=== PATIENT | male | born 1950 | race Caucasian/White ===

== ENCOUNTER → 2016-06-09 | Outpatient (CLI) | payer MEDICARE ==
[~2016-06-09] MED LIST: ACET-2267 PO; CEPH-507 PO; CEPH500C PO; CYCL10TA9 PO; DIPH25CA79 PO; RANI150T90 PO; RT-ALBUINH IH; SULF-222 PO; benedryl; protonix
--- NOTE | 2016-06-09 14:46 | Diagnostic Imaging Report ---
EXAMINATION: Right lower extremity duplex venous ultrasound. TECHNIQUE: DVT protocol. Multiple sonographic images with color Doppler and waveform interrogation were performed of the right lower extremity veins with compression and augmentation maneuvers. INDICATION: Right leg pain and swelling. FINDINGS: The right lower extremity veins from the groin to below the knee veins were examined with normal color-flow, compressibility and normal waveform demonstrated. The great saphenous vein is patent. IMPRESSION: No evidence of DVT in the right lower extremity. Dictated by: Dictated on workstation # [id number]
== END ==
LOC: RAD 13:18
PROVIDERS: ATTEND Family Medicine
DX: M79.89 Other specified soft tissue disorders (principal)

== ENCOUNTER 2016-06-29 17:55 | Inpatient (IN) | payer MEDICARE ==
[~2016-06-29] VITALS: Ht 172.7 cm; Wt 64.4 kg
[~2016-06-29 17:55] MED LIST changes: -ACET-2267 PO; -CEPH-507 PO; -CEPH500C PO; -DIPH25CA79 PO; -RANI150T90 PO; -RT-ALBUINH IH; -SULF-222 PO
[2016-06-29 18:53] LABS: BASOPHILS % (AUTO) 0 % (0-10); EOSINOPHILS # (AUTO) 0.2 10^3/uL (0.0-0.3); EOSINOPHILS % (AUTO) 2 % (0-10); LYMPHOCYTES # (AUTO) 0.9 X 10^3 (1.0-4.0); LYMPHOCYTES % (AUTO) 8 % (12-44); MEAN CORPUSCULAR HEMOGLOBIN 32 PG (25-34); MEAN CORPUSCULAR HGB CONC 33 G/DL (32-36); MEAN CORPUSCULAR VOLUME 99 FL (80-99); MEAN PLATELET VOLUME 9.3 FL (7.4-10.4); MONOCYTES # (AUTO) 0.9 X 10^3 (0.0-1.0); MONOCYTES % (AUTO) 8 % (0-12); NEUTROPHILS # (AUTO) 9.5 X 10^3 (1.8-7.8); NEUTROPHILS % (AUTO) 83 % (42-75); PLATELET COUNT 373 10^3/uL (130-400); WHITE BLOOD COUNT 11.5 10^3/uL (4.3-11.0)
[2016-06-29 19:13] LABS: ALANINE AMINOTRANSFERASE 24 U/L (0-55); ALBUMIN 4.6 G/DL (3.2-4.5); ANION GAP 12 MMOL/L (5-14); ASPARTATE AMINO TRANSFERASE 22 U/L (5-34); BILIRUBIN,TOTAL 0.4 MG/DL (0.1-1.0); BLOOD UREA NITROGEN 17 MG/DL (7-18); BUN/CREATININE RATIO 16; CALCIUM 9.5 MG/DL (8.5-10.1); CARBON DIOXIDE 22 MMOL/L (21-32); CHLORIDE 103 MMOL/L (98-107); CREATININE SERUM 1.05 MG/DL (0.60-1.30); GFR ESTIMATED > 60; GLUCOSE 108 MG/DL (70-105); POTASSIUM 4.3 MMOL/L (3.6-5.0); SODIUM 137 MMOL/L (135-145); TOTAL PROTEIN 7.7 G/DL (6.4-8.2); hs C REACTIVE PROTEIN 0.43 MG/DL (0.00-0.50)
[2016-06-29 19:30] LABS: ERYTHROCYTE SEDIMENTATION RATE 4 MM/HR (0-30)
[2016-06-29] MEDS ORDERED: VANCOMYCIN INJECTION 1,000 MG in NS (IVPB) 250 ML IV ONE (19:45)
[2016-06-29 20:21] VITALS: BP 154/83
[2016-06-29] MEDS ORDERED: CATHETER FLUSH 10 ML SYR IV PRN (20:45)
[2016-06-29] MEDS ORDERED: CEPH500C PO (21:10)
[2016-06-29] MEDS ORDERED: RT-ALBUINH IH (22:54)
[2016-06-29] MEDS: MUPIROCIN 2% OINT 22 GM (BACTROBAN) TUBE TOP SCH (22:55)
[2016-06-29] MEDS: CATHETER FLUSH 10 ML SYR IV SCH (22:56)
[2016-06-29 23:34] VITALS: BP 136/74
[2016-06-30 03:11] VITALS: BP 129/72
[2016-06-30 04:54] LABS: BASOPHILS % (AUTO) 0 % (0-10); EOSINOPHILS # (AUTO) 0.3 10^3/uL (0.0-0.3); EOSINOPHILS % (AUTO) 4 % (0-10); LYMPHOCYTES # (AUTO) 1.1 X 10^3 (1.0-4.0); LYMPHOCYTES % (AUTO) 15 % (12-44); MEAN CORPUSCULAR HEMOGLOBIN 32 PG (25-34); MEAN CORPUSCULAR HGB CONC 33 G/DL (32-36); MEAN CORPUSCULAR VOLUME 99 FL (80-99); MEAN PLATELET VOLUME 9.2 FL (7.4-10.4); MONOCYTES % (AUTO) 14 % (0-12); NEUTROPHILS % (AUTO) 67 % (42-75); PLATELET COUNT 336 10^3/uL (130-400); RED BLOOD COUNT 4.24 10^6/uL (4.35-5.85); RED CELL DISTRIBUTION WIDTH 13.1 % (10.0-14.5); WHITE BLOOD COUNT 7.4 10^3/uL (4.3-11.0)
[2016-06-30 05:17] LABS: ALANINE AMINOTRANSFERASE 22 U/L (0-55); ALBUMIN 3.9 G/DL (3.2-4.5); ANION GAP 9 MMOL/L (5-14); ASPARTATE AMINO TRANSFERASE 19 U/L (5-34); BILIRUBIN,TOTAL 0.9 MG/DL (0.1-1.0); BLOOD UREA NITROGEN 12 MG/DL (7-18); BUN/CREATININE RATIO 17; CALCIUM 8.7 MG/DL (8.5-10.1); CARBON DIOXIDE 22 MMOL/L (21-32); CHLORIDE 103 MMOL/L (98-107); GFR ESTIMATED > 60; GLUCOSE 100 MG/DL (70-105); POTASSIUM 3.9 MMOL/L (3.6-5.0); SODIUM 134 MMOL/L (135-145); TOTAL PROTEIN 6.6 G/DL (6.4-8.2)
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
[2016-06-30] MEDS: CATHETER FLUSH 10 ML SYR IV SCH ×3 (06:24→20:30)
[2016-06-30] MEDS: VANCOMYCIN 1 GM/NS 250 ML IVPB IV SCH ×4 (07:47→20:31)
[2016-06-30] MEDS: MUPIROCIN 2% OINT 22 GM (BACTROBAN) TUBE TOP SCH ×2 (07:48→20:31)
[2016-06-30 08:00] VITALS: BP 139/73
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
[2016-06-30] MEDS: ENOXAPARIN 40 MG/0.4 ML (LOVENOX) SYR SC SCH (09:56)
[2016-06-30] MEDS ORDERED: RANI150T90 PO (10:39)
[2016-06-30] MEDS ORDERED: ACET-2267 PO (10:40)
[2016-06-30] MEDS ORDERED: DIPH25CA79 PO (10:45)
[2016-06-30 12:00] VITALS: BP_SYST 108; BP_SYST 118; BP_DIAS 71; BP_DIAS 72
[2016-06-30 16:30] VITALS: BP 124/74
[2016-06-30] MEDS ORDERED: ACETAMINOPHEN 500 MG TAB (TYLENOL) PO PRN (17:00)
[2016-06-30] MEDS ORDERED: RT-ALBUTEROL SULF 2.5 MG/3 ML PRE-MIX VIAL IH PRN (17:45)
[2016-06-30] MEDS ORDERED: diphenhydrAMINE 25 MG TAB (BENADRYL) PO PRN (17:45)
[2016-06-30 20:26] VITALS: BP 129/78
[2016-06-30] MEDS ORDERED: FAMOTIDINE 20 MG (PEPCID) TABLET PO PRN (21:00)
[2016-07-01] VITALS: BP 128/81
[2016-07-01 04:00] VITALS: BP 123/70
[2016-07-01] MEDS ORDERED: TROUGH ORDER-PHARMACY XX NR (07:00)
[2016-07-01] MEDS: CATHETER FLUSH 10 ML SYR IV SCH ×3 (07:06→20:50)
[2016-07-01 07:24] LABS: BASOPHILS % (AUTO) 0 % (0-10); EOSINOPHILS # (AUTO) 0.5 10^3/uL (0.0-0.3); EOSINOPHILS % (AUTO) 9 % (0-10); LYMPHOCYTES % (AUTO) 18 % (12-44); MEAN CORPUSCULAR HEMOGLOBIN 32 PG (25-34); MEAN CORPUSCULAR HGB CONC 32 G/DL (32-36); MEAN CORPUSCULAR VOLUME 99 FL (80-99); MONOCYTES # (AUTO) 0.8 X 10^3 (0.0-1.0); MONOCYTES % (AUTO) 14 % (0-12); NEUTROPHILS # (AUTO) 3.4 X 10^3 (1.8-7.8); NEUTROPHILS % (AUTO) 59 % (42-75); PLATELET COUNT 327 10^3/uL (130-400); RED BLOOD COUNT 4.64 10^6/uL (4.35-5.85); RED CELL DISTRIBUTION WIDTH 13.1 % (10.0-14.5); WHITE BLOOD COUNT 5.6 10^3/uL (4.3-11.0)
[2016-07-01 07:50] LABS: ANION GAP 7 MMOL/L (5-14); BLOOD UREA NITROGEN 9 MG/DL (7-18); BUN/CREATININE RATIO 13; CALCIUM 8.9 MG/DL (8.5-10.1); CARBON DIOXIDE 24 MMOL/L (21-32); CHLORIDE 103 MMOL/L (98-107); CREATININE SERUM 0.67 MG/DL (0.60-1.30); GFR ESTIMATED > 60; GLUCOSE 96 MG/DL (70-105); SODIUM 134 MMOL/L (135-145)
--- NOTE | 2016-07-01 07:52 | Progress Note (SOAP) ---
Subjective Subjective/Events-last exam cellulitis of right leg. Failure of outpatient treatment. Redness is better. Patient has still some swelling of the right foot. Patient in the right direction Objective Exam Vital Signs Date Time Temp Pulse Resp B/P (MAP) Pulse Ox O2 Delivery O2 Flow Rate FiO2 07/01/16 04:00 96.7 90 18 123/70 97 Room Air 07/01/16 00:00 96.3 87 18 128/81 96 Room Air 06/30/16 20:26 97.1 83 20 129/78 96 Room Air 06/30/16 16:30 97.7 78 20 124/74 97 Room Air 06/30/16 12:00 99.0 79 20 118/71 98 Room Air 06/30/16 08:00 98.8 88 20 139/73 97 Room Air I & O 07/01/16 07:00 Intake Total 3040 ml Output Total 3350 ml Balance -310 ml Capillary Refill : Less Than 3 Seconds General Appearance: No Apparent Distress HEENT: Normal ENT Inspection Neck: Full Range of Motion, Non Tender Respiratory: Chest Non Tender, Lungs Clear, No Accessory Muscle Use, No Respiratory Distress Cardiovascular: Regular Rate, Rhythm, No Murmur Gastrointestinal: non tender, soft Results Lab Laboratory Tests 07/01/16 07:10 Laboratory Tests 07/01/16 07:10: White Blood Count 5.6, Red Blood Count 4.64, Hemoglobin 14.8, Hematocrit 46, Mean Corpuscular Volume 99, Mean Corpuscular Hemoglobin 32, Mean Corpuscular Hemoglobin Concent 32, Red Cell Distribution Width 13.1, Platelet Count 327, Mean Platelet Volume 9.0, Neutrophils (%) (Auto) 59, Lymphocytes (%) (Auto) 18, Monocytes (%) (Auto) 14H, Eosinophils (%) (Auto) 9, Basophils (%) (Auto) 0, Neutrophils # (Auto) 3.4, Lymphocytes # (Auto) 1.0, Monocytes # (Auto) 0.8, Eosinophils # (Auto) 0.5H, Basophils # (Auto) 0.0 Microbiology 06/29/16 Blood Culture - Preliminary, Resulted No growth 06/29/16 Gram Stain - Final, Resulted 06/29/16 Wound Culture - Preliminary, Resulted No growth Assessment/Plan Assessment/Plan Assess & Plan/Chief Complaint cellulitis of right leg. Family outpatient treatment. Right foot is doing better. Less redness of the leg Clinical Quality Measures DVT/VTE Risk/Contraindication: Risk Factor Score Per Nursin RFS Level Per Nursing on Admit: 4+=Very High Contraindications-Mechi: Other *list below* JULIA HONG DO July 01, 2016 07:51
[2016-07-01 08:00] VITALS: BP 142/68
[2016-07-01] MEDS: MUPIROCIN 2% OINT 22 GM (BACTROBAN) TUBE TOP SCH ×2 (08:41→20:50)
[2016-07-01] MEDS: VANCOMYCIN 1 GM/NS 250 ML IVPB IV SCH ×4 (08:41→17:22)
[2016-07-01] MEDS: ENOXAPARIN 40 MG/0.4 ML (LOVENOX) SYR SC SCH (08:41)
[2016-07-01] MEDS ORDERED: ACETAMINOPHEN 500 MG TAB (TYLENOL) PO PRN (08:45)
[2016-07-01 15:45] VITALS: BP 155/72
[2016-07-02] VITALS: BP 136/80
[2016-07-02] MEDS: VANCOMYCIN 1 GM/NS 250 ML IVPB IV SCH ×6 (01:08→16:46)
[2016-07-02] MEDS: CATHETER FLUSH 10 ML SYR IV SCH ×3 (06:32→22:19)
[2016-07-02] MEDS ORDERED: TROUGH ORDER-PHARMACY XX NR (07:00)
--- NOTE | 2016-07-02 07:35 | Progress Note (SOAP) ---
Subjective Subjective/Events-last exam cellulitis of right leg. Still has some redness but is improving. Patient needs 1 more day of IV antibiotics. Failure to outpatient treatment Objective Exam Vital Signs Date Time Temp Pulse Resp B/P (MAP) Pulse Ox O2 Delivery O2 Flow Rate FiO2 07/02/16 00:00 96.4 77 16 136/80 97 Room Air 07/01/16 15:45 98.5 75 18 155/72 97 Room Air 07/01/16 08:00 96.7 77 20 142/68 98 Room Air I & O 07/02/16 07:00 Intake Total 4700 ml Output Total 3800 ml Balance 900 ml Capillary Refill : Less Than 3 Seconds General Appearance: No Apparent Distress, WD/WN HEENT: Normal ENT Inspection Neck: Full Range of Motion, Normal Inspection Respiratory: Chest Non Tender, Lungs Clear, Normal Breath Sounds, No Accessory Muscle Use, No Respiratory Distress Cardiovascular: Regular Rate, Rhythm, No Murmur Gastrointestinal: non tender, soft Results Lab Laboratory Tests 07/01/16 15:51: Glucometer 104 07/02/16 07:25: Microbiology 06/29/16 Blood Culture - Preliminary, Resulted No growth 06/29/16 Gram Stain - Final, Resulted 06/29/16 Wound Culture - Preliminary, Resulted No growth Assessment/Plan Assessment/Plan Assess & Plan/Chief Complaint cellulitis of right leg. Family outpatient treatment. Right foot is doing better. Less redness of the leg. . 07/02/16. Cellulitis of right leg slowly improving. Failure to outpatient treatment. Patient needs 1 more day of IV antibiotics Clinical Quality Measures DVT/VTE Risk/Contraindication: Risk Factor Score Per Nursin RFS Level Per Nursing on Admit: 4+=Very High Contraindications-Mechi: Other *list below* JULIA HONG DO July 02, 2016 07:34
[2016-07-02] MEDS: ENOXAPARIN 40 MG/0.4 ML (LOVENOX) SYR SC SCH (07:44)
[2016-07-02] MEDS: MUPIROCIN 2% OINT 22 GM (BACTROBAN) TUBE TOP SCH ×2 (07:45→22:19)
[2016-07-02 08:35] VITALS: BP 151/68
[2016-07-02 15:20] VITALS: BP 147/67
[2016-07-03] VITALS: BP 134/77
[2016-07-03] MEDS: VANCOMYCIN 1 GM/NS 250 ML IVPB IV SCH ×4 (00:26→08:15)
[2016-07-03] MEDS: CATHETER FLUSH 10 ML SYR IV SCH (06:17)
--- NOTE | 2016-07-03 07:45 | Progress Note (SOAP) ---
Subjective Subjective/Events-last exam cellulitis of right leg. Failure outpatient treatment. Right leg looks better and foot better. To send home on double strength and Keflex. To discharge today. Patient told to the elevate leg and stay in bed and rest Objective Exam Vital Signs Date Time Temp Pulse Resp B/P (MAP) Pulse Ox O2 Delivery O2 Flow Rate FiO2 07/03/16 00:00 98.1 64 16 134/77 96 Room Air 07/02/16 15:20 98.2 86 18 147/67 97 Room Air 07/02/16 08:35 97.9 107 20 151/68 98 Room Air I & O 07/03/16 07:00 Intake Total 7625 ml Output Total 8225 ml Balance -600 ml Capillary Refill : Less Than 3 Seconds General Appearance: No Apparent Distress, Thin Neck: Full Range of Motion, Normal Inspection Respiratory: Chest Non Tender, Lungs Clear, Normal Breath Sounds, No Accessory Muscle Use, No Respiratory Distress Cardiovascular: Regular Rate, Rhythm, No Murmur Results Lab Microbiology 06/29/16 Blood Culture - Preliminary, Resulted No growth 06/29/16 Gram Stain - Final, Resulted 06/29/16 Wound Culture - Preliminary, Resulted Staph, Coag Neg (Ins[employer]) Assessment/Plan Assessment/Plan Assess & Plan/Chief Complaint cellulitis of right leg. Family outpatient treatment. Right foot is doing better. Less redness of the leg. . 07/02/16. Cellulitis of right leg slowly improving. Failure to outpatient treatment. Patient needs 1 more day of IV antibiotics. . 07/03/16. Cellulitis of right leg and foot improving area Failure is outpatient. Treatment. Patient to be discharged today on Sept and Keflex Clinical Quality Measures DVT/VTE Risk/Contraindication: Risk Factor Score Per Nursin RFS Level Per Nursing on Admit: 4+=Very High Contraindications-Mechi: Other *list below* JULIA HONG DO July 03, 2016 07:45
[2016-07-03] MEDS: ENOXAPARIN 40 MG/0.4 ML (LOVENOX) SYR SC SCH (08:14)
[2016-07-03] MEDS: MUPIROCIN 2% OINT 22 GM (BACTROBAN) TUBE TOP SCH (08:15)
[2016-07-03 08:36] VITALS: BP 142/72
[2016-07-03] MEDS ORDERED: CEPH-507 PO (11:40)
[2016-07-03] MEDS ORDERED: SULF-222 PO (11:40)
--- NOTE | 2016-07-07 07:25 | Discharge Summary ---
Diagnosis/Chief Complaint Date of Admission Jun 29, 2016 at 19:30 Date of Discharge July 03, 2016 at 13:15 Discharge Date: July 03, 2016 Admission Diagnosis Admission Diagnosis cellulitis right leg. Failure of outpatient treatment Discharge Diagnosis Cellulitis of right leg and foot. History of GERD. History of nicotine dependence. Unspecified asthma. Noncompliance Reason Hospital Visit cellulitis of right lower leg. Patient has been given antibiotics as an outpatient without success. Patient walks 2 miles a day and does not restless leg. Patient does not have a car and gets around by bicycle. Patient has been in the rain Worse. Patient showed up to the emergency room, evaluated and admitted Discharge Summary Discharge Physical Examination Allergies: Uncoded Allergies: chicken feathers (Allergy, Mild, 12/09/08) Vitals & I&Os Vital Signs Date Time Temp Pulse Resp B/P (MAP) Pulse Ox O2 Delivery O2 Flow Rate FiO2 07/03/16 08:36 96.0 98 20 142/72 97 Room Air Hospital Course Right foot and right leg was much better. Patient told to rest the foot and leg and stay at home. Patient told not to walk 2 miles a day and not use his bicycle to the leg gets better Labs (last 24 hrs) Laboratory Tests 06/29/16 18:39: White Blood Count 11.5H, Red Blood Count 4.50, Hemoglobin 14.5, Hematocrit 44, Mean Corpuscular Volume 99, Mean Corpuscular Hemoglobin 32, Mean Corpuscular Hemoglobin Concent 33, Red Cell Distribution Width 13.0, Platelet Count 373, Mean Platelet Volume 9.3, Neutrophils (%) (Auto) 83H, Lymphocytes (%) (Auto) 8L , Monocytes (%) (Auto) 8, Eosinophils (%) (Auto) 2, Basophils (%) (Auto) 0, Neutrophils # (Auto) 9.5H, Lymphocytes # (Auto) 0.9L, Monocytes # (Auto) 0.9, Eosinophils # (Auto) 0.2, Basophils # (Auto) 0.0, Erythrocyte Sedimentation Rate 4, Sodium Level 137, Potassium Level 4.3, Chloride Level 103, Carbon Dioxide Level 22, Anion Gap 12, Blood Urea Nitrogen 17, Creatinine 1.05, Estimat Glomerular Filtration Rate > 60, BUN/Creatinine Ratio 16, Glucose Level 108H, Lactic Acid Level 1.78, Calcium Level 9.5, Total Bilirubin 0.4, Aspartate Amino Transf (AST/SGOT) 22, Alanine Aminotransferase (ALT/SGPT) 24, Alkaline Phosphatase 94, C-Reactive Protein High Sensitivity 0.43, Total Protein 7.7, Albumin 4.6H 06/30/16 04:28: White Blood Count 7.4, Red Blood Count 4.24L, Hemoglobin 13.7, Hematocrit 42, Mean Corpuscular Volume 99, Mean Corpuscular Hemoglobin 32, Mean Corpuscular Hemoglobin Concent 33, Red Cell Distribution Width 13.1, Platelet Count 336, Mean Platelet Volume 9.2, Neutrophils (%) (Auto) 67, Lymphocytes (%) (Auto) 15, Monocytes (%) (Auto) 14H, Eosinophils (%) (Auto) 4, Basophils (%) (Auto) 0, Neutrophils # (Auto) 5.0, Lymphocytes # (Auto) 1.1, Monocytes # (Auto) 1.0, Eosinophils # (Auto) 0.3, Basophils # (Auto) 0.0, Sodium Level 134L, Potassium Level 3.9, Chloride Level 103, Carbon Dioxide Level 22, Anion Gap 9, Blood Urea Nitrogen 12, Creatinine 0.70, Estimat Glomerular Filtration Rate > 60, BUN/ Creatinine Ratio 17, Glucose Level 100, Calcium Level 8.7, Total Bilirubin 0.9, Aspartate Amino Transf (AST/SGOT) 19, Alanine Aminotransferase (ALT/SGPT) 22, Alkaline Phosphatase 82, Total Protein 6.6, Albumin 3.9 07/01/16 07:10: White Blood Count 5.6, Red Blood Count 4.64, Hemoglobin 14.8, Hematocrit 46, Mean Corpuscular Volume 99, Mean Corpuscular Hemoglobin 32, Mean Corpuscular Hemoglobin Concent 32, Red Cell Distribution Width 13.1, Platelet Count 327, Mean Platelet Volume 9.0, Neutrophils (%) (Auto) 59, Lymphocytes (%) (Auto) 18, Monocytes (%) (Auto) 14H, Eosinophils (%) (Auto) 9, Basophils (%) (Auto) 0, Neutrophils # (Auto) 3.4, Lymphocytes # (Auto) 1.0, Monocytes # (Auto) 0.8, Eosinophils # (Auto) 0.5H, Basophils # (Auto) 0.0, Sodium Level 134L, Potassium Level 4.0, Chloride Level 103, Carbon Dioxide Level 24, Anion Gap 7, Blood Urea Nitrogen 9, Creatinine 0.67, Estimat Glomerular Filtration Rate > 60, BUN/ Creatinine Ratio 13, Glucose Level 96, Calcium Level 8.9, Vancomycin Level Trough 6.4L 07/01/16 15:51: Glucometer 104 07/02/16 07:25: Vancomycin Level Trough 12.2 Microbiology 06/29/16 Blood Culture - Final, Complete No growth 06/29/16 Gram Stain - Final, Complete 06/29/16 Wound Culture - Final, Complete Staph, Coag Neg (Architectural Practice Manager) Laboratory Tests 06/29/16 18:39 06/30/16 04:28 07/01/16 07:10 Pending Labs Microbiology Date/Time Source Procedure Growth Status 06/29/16 18:39 Peripheral Rt Ac Blood Culture - Final No growth Complete 06/29/16 18:39 Peripheral Lt Ac Blood Culture - Final No growth Complete 06/29/16 18:39 Ulcer Leg, Right Gram Stain - Final Complete 06/29/16 18:39 Wound Culture - Final Staph, Coag Neg (Architectural Practice Manager) Complete Laboratory Tests 06/29/16 18:39: White Blood Count 11.5, Red Blood Count 4.50, Hemoglobin 14.5, Hematocrit 44, Mean Corpuscular Volume 99, Mean Corpuscular Hemoglobin 32, Mean Corpuscular Hemoglobin Concent 33, Red Cell Distribution Width 13.0, Platelet Count 373, Mean Platelet Volume 9.3, Neutrophils (%) (Auto) 83, Lymphocytes (%) (Auto) 8, Monocytes (%) (Auto) 8, Eosinophils (%) (Auto) 2, Basophils (%) (Auto) 0, Neutrophils # (Auto) 9.5, Lymphocytes # (Auto) 0.9, Monocytes # (Auto) 0.9, Eosinophils # (Auto) 0.2, Basophils # (Auto) 0.0, Erythrocyte Sedimentation Rate 4, Sodium Level 137, Potassium Level 4.3, Chloride Level 103, Carbon Dioxide Level 22, Anion Gap 12, Blood Urea Nitrogen 17, Creatinine 1.05, Estimat Glomerular Filtration Rate > 60, BUN/Creatinine Ratio 16, Glucose Level 108, Lactic Acid Level 1.78, Calcium Level 9.5, Total Bilirubin 0.4, Aspartate Amino Transf (AST/SGOT) 22, Alanine Aminotransferase (ALT/SGPT) 24, Alkaline Phosphatase 94, C-Reactive Protein High Sensitivity 0.43, Total Protein 7.7, Albumin 4.6 06/30/16 04:28: White Blood Count 7.4, Red Blood Count 4.24, Hemoglobin 13.7, Hematocrit 42, Mean Corpuscular Volume 99, Mean Corpuscular Hemoglobin 32, Mean Corpuscular Hemoglobin Concent 33, Red Cell Distribution Width 13.1, Platelet Count 336, Mean Platelet Volume 9.2, Neutrophils (%) (Auto) 67, Lymphocytes (%) (Auto) 15, Monocytes (%) (Auto) 14, Eosinophils (%) (Auto) 4, Basophils (%) (Auto) 0, Neutrophils # (Auto) 5.0, Lymphocytes # (Auto) 1.1, Monocytes # (Auto) 1.0, Eosinophils # (Auto) 0.3, Basophils # (Auto) 0.0, Sodium Level 134, Potassium Level 3.9, Chloride Level 103, Carbon Dioxide Level 22, Anion Gap 9, Blood Urea Nitrogen 12, Creatinine 0.70, Estimat Glomerular Filtration Rate > 60, BUN/ Creatinine Ratio 17, Glucose Level 100, Calcium Level 8.7, Total Bilirubin 0.9, Aspartate Amino Transf (AST/SGOT) 19, Alanine Aminotransferase (ALT/SGPT) 22, Alkaline Phosphatase 82, Total Protein 6.6, Albumin 3.9 07/01/16 07:10: White Blood Count 5.6, Red Blood Count 4.64, Hemoglobin 14.8, Hematocrit 46, Mean Corpuscular Volume 99, Mean Corpuscular Hemoglobin 32, Mean Corpuscular Hemoglobin Concent 32, Red Cell Distribution Width 13.1, Platelet Count 327, Mean Platelet Volume 9.0, Neutrophils (%) (Auto) 59, Lymphocytes (%) (Auto) 18, Monocytes (%) (Auto) 14, Eosinophils (%) (Auto) 9, Basophils (%) (Auto) 0, Neutrophils # (Auto) 3.4, Lymphocytes # (Auto) 1.0, Monocytes # (Auto) 0.8, Eosinophils # (Auto) 0.5, Basophils # (Auto) 0.0, Sodium Level 134, Potassium Level 4.0, Chloride Level 103, Carbon Dioxide Level 24, Anion Gap 7, Blood Urea Nitrogen 9, Creatinine 0.67, Estimat Glomerular Filtration Rate > 60, BUN/ Creatinine Ratio 13, Glucose Level 96, Calcium Level 8.9, Vancomycin Level Trough 6.4 07/01/16 15:51: Glucometer 104 07/02/16 07:25: Vancomycin Level Trough 12.2 Discussion & Recommendations 2 office Discharge Home Medications: Active Scripts Active Sulfamethoxazole-Tmp Ds Tablet (Sulfamethoxazole/Trimethoprim) 1 Each Tablet 1 Each PO BID Keflex (Cephalexin) 500 Mg Capsule 500 Mg PO TID Reported Benadryl (Diphenhydramine HCl) 25 Mg Capsule 25 Mg PO TID PRN Tylenol Extra Strength (Acetaminophen) 500 Mg Tablet 1,500 Mg PO TID PRN TAKES 3 (500MG) TABLETS Acid Acute Care Registered Nurse (RANITIDINE) (Ranitidine HCl) 150 Mg Tablet 150 Mg PO BID PRN Ventolin Hfa (Albuterol Sulfate) 1 Puff Puff 2 Puff IH Q4H PRN Instructions to patient/family Please see electonic discharge instructions given to patient. Clinical Quality Measures DVT/VTE Risk/Contraindication: Risk Factor Score Per Nursin RFS Level Per Nursing on Admit: 4+=Very High Contraindications-Mechi: Other *list below* JULIA HONG DO July 07, 2016 07:25
== END 2016-07-03 13:15 | disposition home or self-care (01) | DRG 603 ==
LOC: EDUNIT# 17:55 → ER 17:57 → 4TH 19:30
PROVIDERS: ADMIT Family Medicine; ATTEND Family Medicine
DX: L03.115 Cellulitis of right lower limb (principal); R73.03 Prediabetes; J45.909 Unspecified asthma, uncomplicated; J43.9 Emphysema, unspecified; K21.9 Gastro-esophageal reflux disease without esophagitis; F10.10 Alcohol abuse, uncomplicated; M54.9 Dorsalgia, unspecified; Z87.891 Personal history of nicotine dependence
CPT/HCPCS: 36415; 80048; 80053; 80202; 82962; 83605; 85025; 85652; 86141; 87040; 87070; 87205; 96365

== ENCOUNTER 2016-09-24 09:43 | Outpatient (RCR) | payer MEDICARE, OTHER ==
[~2016-09-24 09:43] MED LIST changes: +ACET-2267 PO; +CEPH-507 PO; +CEPH500C PO; +DIPH25CA79 PO; +RANI150T90 PO; +RT-ALBUINH IH; +SULF-222 PO
== END 2016-09-24 16:00 | disposition home or self-care (01) ==
LOC: WOUNDCARE 09:43
PROVIDERS: ATTEND Surgery
DX: B35.3 Tinea pedis (principal); I87.323 Chronic venous hypertension (idiopathic) with inflammation of bilateral lower extremity
CPT/HCPCS: 99212; 99213

== ENCOUNTER → 2018-04-15 | Outpatient (CLI) | payer MEDICARE, OTHER ==
[~2018-04-15] MED LIST changes: +IOHEXOL 350 MG/ML 100 ML (OMNIPAQUE 350) VIAL IV ONE; +NS 100 ML (IVPB) BAG IV ONE; +RECEIVED CONTRAST (Hold Metformin) IV SCH
[2018-04-15 09:09] LABS: BUN/CREATININE RATIO 12; CREATININE SERUM 0.65 MG/DL (0.60-1.30); GFR ESTIMATED > 60
--- NOTE | 2018-04-15 10:11 | Diagnostic Imaging Report ---
PROCEDURE: CT neck soft tissue with contrast. TECHNIQUE: Multiple contiguous axial images were obtained through the neck after the administration of contrast. INDICATION: Neck mass, left vocal cord paralysis. There is heterogeneous mass centered to the left of midline in the larynx. This is estimated to measure approximately 2.0 x 1.6 x 2.0 cm. This likely arises from the left vocal cord, however, there is extension into and destruction of the left thyroid cartilage and upper cricoid cartilage. In addition, there is a lobulated air-fluid level to the left of midline measuring approximately 4 x 3 cm which results in significant rightward displacement of the hypopharynx. Parotid and submandibular salivary glands are unremarkable in appearance. There is no evidence of thyroid gland abnormality. Great vessels in the neck are unremarkable in appearance with wide patency. There is no evidence of abnormality of the skull base. Note is made of mural thickening and air-fluid level within the right maxillary sinus. Right krystal bullosa is noted with leftward deviation of the nasal septum. The patient is edentulous. IMPRESSION: There is an approximately 2 cm in diameter mass likely centered at the level of the left vocal cord with adjacent cartilage invasion and destruction. 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 Direct visualization is suggested for further evaluation. There is no evidence of pathologic adenopathy in the neck to indicate metastatic disease. There is evidence of sinusitis following the right maxilla. There is also diffuse cervical spondylosis. Dictated by: Dictated on workstation # [id number]
== END ==
LOC: RAD 08:33
PROVIDERS: ATTEND Otolaryngology Otolaryngology/Facial Plastic Surgery
DX: J32.0 Chronic maxillary sinusitis (principal); M47.812 Spondylosis without myelopathy or radiculopathy, cervical region; J38.01 Paralysis of vocal cords and larynx, unilateral
CPT/HCPCS: 36415; 70491; 82565; 84520

== ENCOUNTER → 2018-07-13 | Outpatient (CLI) | payer MEDICARE, OTHER ==
[~2018-07-13] MED LIST changes: -IOHEXOL 350 MG/ML 100 ML (OMNIPAQUE 350) VIAL IV ONE; -NS 100 ML (IVPB) BAG IV ONE; -RECEIVED CONTRAST (Hold Metformin) IV SCH
--- NOTE | 2018-07-13 13:55 | Diagnostic Imaging Report ---
INDICATION: Laryngeal carcinoma, initial staging. TECHNIQUE: Serum blood glucose level at the time of injection is 140 mg/dL. Patient was administered 12.6 mCi F-18 FDG intravenously in the right antecubital location and PET imaging was performed from the top of the skull through the mid thighs. Noncontrast CT was also performed for attenuation correction and anatomic correlation. COMPARISON: No prior PET studies available for comparison. Comparison is made with recent CT study of the neck from 04/15/2018. FINDINGS: There is symmetric activity throughout the brain. Intense hypermetabolism is identified in the left neck in the region of the previously noted mass involving the larynx at the level of the left vocal cord. SUV max is approximately 11.1. Mass measures at least 2.3 cm. Destructive changes in the adjacent cartilage are again noted. Tracheostomy tube is in place. No hypermetabolic cervical lymphadenopathy is seen. Imaging through the chest is without hypermetabolic mediastinal or hilar lymphadenopathy. Pulmonary parenchyma is unremarkable. There is physiologic activity within the GI and tracts of the abdomen and pelvis IMPRESSION: Intense hypermetabolism in the larynx in the region of the left vocal cord. This again demonstrates cartilaginous destructive changes. No hypermetabolic neck lymphadenopathy is detected. Remainder of the study is unremarkable. Dictated by: Dictated on workstation # [id number]
== END ==
LOC: RAD 09:41
PROVIDERS: ATTEND Otolaryngology
DX: C32.9 Malignant neoplasm of larynx, unspecified (principal); Z93.0 Tracheostomy status

== ENCOUNTER → 2019-03-24 | Outpatient (CLI) | payer OTHER ==
[~2019-03-24] MED LIST changes: +BARIUM for suspension 96% w/w (Vanilla Silq Medium Density) PO ONE; +BARIUM for suspension 98% w/w (Vanilla Silq High Density) PO ONE; +DIATRIZOATE MEGLUM/SODIUM 37% 120 ML (GASTROGRAFIN) PO ONE
--- NOTE | 2019-03-24 11:15 | Diagnostic Imaging Report ---
EXAMINATION: Barium swallow with esophagram. INDICATION: Esophageal dysphagia. COMPARISON: There are no prior studies available for comparison. FINDINGS: The patient does have a tracheostomy in place. For this reason, Gastrografin was utilized. The patient swallowed the contrast material without difficulty. There was no delay or obstruction of the passage of barium through the esophagus. There is a small roughly 1 cm Zenker's diverticulum near midline. There was a small sliding hiatal hernia and gastroesophageal reflux was noted on several occasions during the exam. The reflux extended to the level of the niki. There is no sign of esophagitis, however. A cursory examination of the stomach and proximal small bowel shows no acute abnormality. IMPRESSION: 1. The esophagus shows normal motility. There is no evidence for aspiration or penetration. 2. There is a small sliding hiatal hernia and there were multiple episodes of gastroesophageal reflux. There is no sign of esophagitis, however. 3. There is a small Zenker's diverticulum. 4. There is no definite abnormality of the stomach or proximal small bowel. Dictated by: Dictated on workstation # [id number]
== END ==
LOC: RAD 09:41
PROVIDERS: ATTEND Nurse Practitioner Community Health
DX: K21.9 Gastro-esophageal reflux disease without esophagitis (principal); K44.9 Diaphragmatic hernia without obstruction or gangrene; K22.5 Diverticulum of esophagus, acquired
CPT/HCPCS: 74220

== ENCOUNTER 2019-03-30 09:03 | Outpatient (RCR) | payer MEDICARE, OTHER ==
[~2019-03-30 09:03] MED LIST changes: -BARIUM for suspension 96% w/w (Vanilla Silq Medium Density) PO ONE; -BARIUM for suspension 98% w/w (Vanilla Silq High Density) PO ONE; -DIATRIZOATE MEGLUM/SODIUM 37% 120 ML (GASTROGRAFIN) PO ONE
== END 2019-04-26 | disposition home or self-care (01) ==
LOC: ONC 09:03
PROVIDERS: ATTEND Radiology Radiation Oncology
DX: Z51.0 Encounter for antineoplastic radiation therapy (principal); C32.9 Malignant neoplasm of larynx, unspecified
CPT/HCPCS: 77290; 77295; 77300; 77307; 77334; 77336; 77417; 99204

== ENCOUNTER 2019-12-20 06:23 | Emergency (ER) | payer MEDICARE, OTHER ==
[~2019-12-20] VITALS: Ht 167 cm; Wt 63.0 kg
[~2019-12-20 06:23] MED LIST changes: +ACET325T38 PO; +IPRA3AMP31 NEB; +ZANTAC PO
--- NOTE | 2019-12-20 06:54 | NUR ---
Pt arrived by EMS with reports of "asthma attack". Pt reportedly has asthma and family felt he was having an asthma attack. When EMS arrived they report pt was 88% on RA and diminished throughout. They gave pt a breathing tx and pt was 100% by the time pt arrived at ER. Pt is non-verbal due to stoma and previous throat ca. Pt reports he feels better and is only c/o being cold.
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
--- NOTE | 2019-12-20 07:25 | NUR ---
Report to SYBIL Garcia.
--- NOTE | 2019-12-20 07:25 | NUR ---
PT RESTING IN ROOM VS HR-58,SAT RA 93%, B/P 119/72
--- NOTE | 2019-12-20 07:38 | Diagnostic Imaging Report ---
INDICATION: Cough and dyspnea Portable AP view of the chest is obtained with comparison made study of 10/05/2019. There is extensive air trapping bilaterally. Prominent interstitial markings indicate COPD. There is no evidence of pneumothorax, consolidation or significant pleural fluid. IMPRESSION: Findings remain compatible with COPD without acute abnormality identified. Dictated by: Dictated on workstation # [id number]
[2019-12-20 07:45] VITALS: BP 95/64
== END 2019-12-20 07:45 | disposition home or self-care (01) ==
LOC: EDUNIT# 06:23 → ER 06:25
DX: R06.02 Shortness of breath (principal); Z80.6 Family history of leukemia; Z85.21 Personal history of malignant neoplasm of larynx; Z87.891 Personal history of nicotine dependence
CPT/HCPCS: 71045; 93005

== ENCOUNTER 2019-12-21 05:48 | Outpatient (CLI) | payer MEDICARE, OTHER ==
[~2019-12-21] VITALS: Ht 172.7 cm; Wt 63.6 kg
== END 2019-12-21 13:10 | disposition home or self-care (01) ==
LOC: PREOP 05:48
PROVIDERS: ATTEND Specialist
DX: Z01.818 Encounter for other preprocedural examination (principal)

== ENCOUNTER 2019-12-23 11:03 | Day surgery (SDC) | payer MEDICARE, OTHER ==
[2019-12-23] VITALS (9 sets, daily range): BP systolic 102–136; BP diastolic 70–94
[~2019-12-23] VITALS: Ht 172.7 cm; Wt 63.6 kg
[2019-12-23] MEDS ORDERED: TIMOLOL MALEATE 0.5% 5 ML (TIMOPTIC) BTL OU PRN (11:15)
[2019-12-23] MEDS ORDERED: MOXIFLOXACIN OPHTH SOLN 5 MG/ML 0.3 ML SYRINGE OP ONE (11:15)
[2019-12-23] MEDS ORDERED: POVIDONE (BETADINE) OPHTH SOLN 5% 30 ML OP ONE (11:15)
[2019-12-23] MEDS ORDERED: LIDOCAINE PF 1% 2 ML VIAL IR PRN (11:15)
[2019-12-23] MEDS: TETRACAINE 0.5% OPHTH SOLN 4 ML BTL (SINGLE DOSE ONLY) OU PRN ×4 (11:28→11:49)
[2019-12-23] MEDS: PHENYLEPHRINE 10% OPHTH (NEO-SYN) 5 ML BTL OU SCH ×3 (11:37→11:48)
[2019-12-23] MEDS: TROPICAMIDE 1% OPH SOLN (MYDRIACYL) 15 ML BTL OP SCH ×3 (11:37→11:48)
--- NOTE | 2019-12-23 11:48 | Ophthalmologist Pre-Op Note ---
Pre-Operative Progress Note H&P Reviewed The H&P was reviewed, patient examined and no changes noted. Date H&P Reviewed: Dec 23, 2019 Time H&P Reviewed: 11:48 Pre-Op Dx Cataract, Right Eye JEWEL ANGEL MD Dec 23, 2019 11:48
[2019-12-23] MEDS ORDERED: proPOfol 200 MG/20 ML (DIPRIVAN) VIAL IV ONE (11:50)
[2019-12-23] MEDS ORDERED: LIDOCAINE PF 2% 5 ML (XYLOCAINE) VIAL ONE (11:50)
[2019-12-23] MEDS ORDERED: fentaNYL INJECTION 100 MCG/2 ML AMP ONE (11:51)
[2019-12-23] MEDS ORDERED: ROCURONIUM 10 MG/ML 5 ML SYRINGE IV ONE (11:51)
[2019-12-23] MEDS ORDERED: SEVOFLURANE (ULTANE) 15 ML INHAL SOLN ONE (11:51)
[2019-12-23] MEDS ORDERED: LACTATED RINGERS 1,000 ML IV PRN (11:54)
--- NOTE | 2019-12-23 12:06 | Ophthalmology Operative Report ---
Cataract removal/placement IOL PREOPERATIVE DIAGNOSIS: Cataract Right Eye POSTOPERATIVE DIAGNOSIS: Cataract Right Eye PROCEDURE: Cataract removal and placement of posterior chamber implant, right eye SURGEON: Neal Angel ANESTHESIA: General COMPLICATIONS: None ESTIMATED BLOOD LOSS: Minimal DESCRIPTION OF PROCEDURE: After proper informed consent was obtained, the patient, a 69 male, was taken to the Operating Room and the right eye was anesthetized with tetracaine. The right eye was then prepped and draped in the usual manner. A wire lid speculum was placed. A paracentesis was made at the left hand position. Preservative free lidocaine was injected into the anterior chamber followed by viscoelastic. A clear corneal incision was made in the temporal position. A capsulorrhexis was preformed and the central nuclear and cortical material were removed. The posterior capsule was polished and Matt 16.5 AU00T0 IOL was placed into the capsular bag. The residual viscoelastic was aspirated and balanced saline solution was injected into the anterior chamber. Moxifloxacin was injected into the anterior chamber. The wound was checked and found to be water tight. The patient tolerated the procedure well without complications. NEAL ANGEL MD Dec 23, 2019 12:06
[2019-12-23] MEDS ORDERED: ONDANSETRON 4 MG/2 ML (SDV) Z0FRAN ONE (12:25)
[2019-12-23] MEDS ORDERED: ONDANSETRON 4 MG/2 ML (SDV) Z0FRAN IVP PRN (12:45)
[2019-12-23] MEDS ORDERED: acetaZOLAMIDE ER 500 MG CAP (DIAMOX SEQUELS) PO ONE (13:00)
--- NOTE | 2019-12-23 14:01 | Anesthesia-General Post-Op ---
General Patient Condition Mental Status/LOC: Same as Preop Cardiovascular: Satisfactory Nausea/Vomiting: Absent Respiratory: Satisfactory Pain: Controlled Complications: Absent Post Op Complications Complications None Follow Up Care/Instructions Patient Instructions None needed. Anesthesia/Patient Condition Patient Condition Patient is doing well, no complaints, stable vital signs, no apparent adverse anesthesia problems. No complications reported per nursing. [place] [facility] [place] Yes XANDER GU CRNA Dec 23, 2019 14:01
== END 2019-12-23 14:15 ==
LOC: SDC 11:03
PROVIDERS: ATTEND Specialist
DX: H25.11 Age-related nuclear cataract, right eye (principal); J45.909 Unspecified asthma, uncomplicated; Z79.51 Long term (current) use of inhaled steroids; Z88.8 Allergy status to other drugs, medicaments and biological substances; Z87.891 Personal history of nicotine dependence
CPT/HCPCS: 66984; V2632

== ENCOUNTER 2023-02-07 20:41 | Inpatient (IN) | payer MEDICARE, OTHER ==
[~2023-02-07] VITALS: Ht 166.5 cm; Wt 38.9 kg
[~2023-02-07 20:41] MED LIST changes: +ALBU8.5H6 IH
--- NOTE | 2023-02-07 20:58 | ED CPR ---
HPI-CPR General Chief Complaint: Code Blue Stated Complaint: CODE Source of Information: EMS Exam Limitations: Other (Clinical condition) History of Present Illness Date Seen by Provider: Feb 07, 2023 Time Seen by Provider: 20:35 Initial Comments 72-year-old male presents via EMS as a CODE BLUE. Family reports they found him unresponsive and not breathing in his room. He has history of severe dementia. No other known medical history though the patient does have a tracheal stoma. EMS reports that on fire arrival AED indicated shock advised so he received 1 fibrillation at 200 J. On their arrival the patient was in asystole. ACLS was resumed throughout transport and just prior to arrival rhythm identified as ventricular fibrillation and subsequent defibrillation was administered to 200 J. He also had 2 rounds of epinephrine in between. On arrival he has pulses but is not breathing spontaneously. Unable to obtain review of systems due to acuity Allergies and Home Medications Allergies Uncoded Allergies: chicken feathers (Allergy, Mild, 12/09/08) Patient Home Medication List Home Medication List Reviewed: Yes Acetaminophen (Tylenol) 325 Mg Tablet, 650 MG PO Q6H PRN for PAIN-MILD (1-4), (Reported) Entered as Reported by: LAMONT KNIGHT on 10/05/19 145 Albuterol Sulfate (Ventolin Hfa) 1 Puff Puff, 2 PUFF IH Q4H PRN for SHORTNESS OF BREATH, (Reported) Entered as Reported by: LAMONT KNIGHT on 10/05/19 145 Diphenhydramine HCl (Benadryl) 25 Mg Capsule, 25-50 MG PO Q6H PRN for ALLERGY SYMPTOMS, (Reported) Entered as Reported by: LAMONT KNIGHT on 10/05/19 145 Ipratropium/Albuterol Sulfate (Iprat-Albut 0.5-3(2.5) mg/3 ml) 3 Ml Ampul.neb, 3 ML NEB Q6H PRN for SHORTNESS OF BREATH, (Reported) Entered as Reported by: LAMONT KNIGHT on 10/05/19 145 [Zantac] , 75 MG PO DAILY, (Reported) Entered as Reported by: LAMONT KNIGHT on 10/05/191453 Review of Systems Review of Systems Constitutional: see HPI Past Vtzcpcx-Fyktea-Abfzsc Hx Immunizations Up To Date Tetanus Booster (TDap): Less than 5yrs Seasonal Allergies Seasonal Allergies: No Past Medical History Surgery/Hospitalization HX: Unable to obtain history due to clinical condition, all documented history is per previous medical records Surgeries: Yes ("SX FOR REFLUX", TRACH) Abdominal, Orthopedic Respiratory: Yes Asthma, Emphysema Currently Using CPAP: No Currently Using BIPAP: No Cardiac: No Neurological: No Genitourinary: No Gastrointestinal: Yes Gastroesophageal Reflux, Hiatal Hernia Musculoskeletal: Yes Back Injury, Chronic Back Pain Endocrine: Yes ("BORDERLINE" DIABETES) Diabetes, Non-Insulin dep HEENT: No Cancer: Yes (LARYNX ) Psychosocial: No Integumentary: Yes (CHRONIC CELLULITIS OF LEGS/FEET--"[employer]" 1971 WHILE IN THE [employer]) Recent Skin Changes Blood Disorders: No Adverse Reaction/Blood Tranf: No Family Medical History FH: leukemia 19 MOTHER Physical Exam Vital Signs Vital Signs - First Documented 02/07/23 02/07/23 20:41 21:14 Pulse 152 Resp 16 B/P (MAP) 110/44 (66) Pulse Ox 100 O2 Delivery Ambu Bag FiO2 100 Capillary Refill : Height, Weight, BMI Height: 5'8.00" Weight: 142lbs. 0.0oz. 64.375268va; 22.00 BMI Method:Stated General Appearance: Other (Patient is severely emaciated. He has purulent material around his stoma. He has pulses that are irregular but strong and bounding. He has no spontaneous respirations.) Respiratory: Other (No spontaneous respirations, no breath sounds) Cardiovascular: Irregularly Irregular, Tachycardia Gastrointestinal: No Organomegaly, Soft Extremity: Other (Patient is pale, severely emaciated with poor capillary refill mottled skin) Neurologic/Psychiatric: Other (Unresponsive) Skin: Mottled, Pallor Procedures/Interventions Lumen: triple Central Line Procedure: betadine prep Position: femoral (R) Anesthesia: local Volume Anesthetic (ccs): 5 Complications: none Post Position: sutured Reason for Intubation: Respiratory arrest Intubation Method: orotracheal Tube Size: 7.0 ET tube was placed directly into the patient's tracheal stoma. It was quite deep at the first chest x-ray, withdrawn to 7 cm after this was identified. Progress/Results/Core Measures Results/Orders Lab Results Laboratory Tests Test 02/07/23 20:46 02/07/23 20:53 02/07/23 20:54 02/07/23 21:00 Range/Units Glucometer 109 70-110 MG/DL Arterial Blood pH < 6.80 *L 7.37-7.43 Arterial Blood Partial Pressure CO2 68 H 35-45 MMHG Arterial Blood Partial Pressure O2 178 H 79-93 MMHG Arterial Blood HCO3 23-27 MMOL/L Arterial Blood Total CO2 21.0-31.0 MMOL/L Arterial Blood Oxygen Saturation 100 94-100 % Arterial Blood Base Excess -2.5-2.5 MMOL/L Blood Gas Ventilator Setting YES Blood Gas Inspired Oxygen 100% White Blood Count 9.7 4.3-11.0 10^3/uL Red Blood Count 4.26 L 4.30-5.52 10^6/uL Hemoglobin 13.0 L 13.3-17.7 g/dL Hematocrit 47 40-54 % Mean Corpuscular Volume 109 H 80-99 fL Mean Corpuscular Hemoglobin 31 25-34 pg Mean Corpuscular Hemoglobin Concent 28 L 32-36 g/dL Red Cell Distribution Width 14.1 10.0-14.5 % Platelet Count 197 130-400 10^3/uL Mean Platelet Volume 10.8 9.0-12.2 fL Sodium Level 157 H 135-145 MMOL/L Potassium Level 7.0 #*H 3.6-5.0 MMOL/L Chloride Level 116 H 98-107 MMOL/L Carbon Dioxide Level 10 L 21-32 MMOL/L Anion Gap 31 H 5-14 MMOL/L Blood Urea Nitrogen 52 H 7-18 MG/DL Creatinine 1.66 H 0.60-1.30 MG/DL Estimat Glomerular Filtration Rate 43 BUN/Creatinine Ratio 31 Glucose Level 34 *L 70-105 MG/DL Calcium Level 10.2 H 8.5-10.1 MG/DL Corrected Calcium 11.1 H 8.5-10.1 MG/DL Magnesium Level 3.6 H 1.6-2.4 MG/DL Total Bilirubin 0.8 0.1-1.0 MG/DL Aspartate Amino Transf (AST/SGOT) 342 H 5-34 U/L Alanine Aminotransferase (ALT/SGPT) 228 H 0-55 U/L Alkaline Phosphatase 120 40-136 U/L Troponin I < 0.028 <0.028 NG/ML Total Protein 6.7 6.4-8.2 GM/DL Albumin 2.9 L 3.2-4.5 GM/DL Urine Color YELLOW Urine Clarity TURBID Urine pH 5.0 5-9 Urine Specific [place] >=1.030 1.016-1.022 Urine Protein 2+ H NEGATIVE Urine Glucose (UA) TRACE H NEGATIVE Urine Ketones TRACE H NEGATIVE Urine Nitrite NEGATIVE NEGATIVE Urine Bilirubin 1+ H NEGATIVE Urine Urobilinogen 0.2 < = 1.0 MG/DL Urine Leukocyte Esterase NEGATIVE NEGATIVE Urine RBC (Auto) 1+ H NEGATIVE Urine RBC 2-5 H /HPF Urine WBC NONE /HPF Urine Squamous Epithelial Cells RARE /HPF Urine Crystals NONE /LPF Urine Amorphous Sediment MOD SAMANTHA URATES H /LPF Urine Bacteria LARGE H /HPF Urine Casts PRESENT /LPF Urine Hyaline Casts RARE /LPF Urine Mucus NEGATIVE /LPF Urine Culture Indicated CULTURE PENDING Test 02/07/23 22:19 02/07/23 22:24 Range/Units Glucometer 72 70-110 MG/DL Arterial Blood pH 6.81 *L 7.37-7.43 Arterial Blood Partial Pressure CO2 64 H 35-45 MMHG Arterial Blood Partial Pressure O2 379 H 79-93 MMHG Arterial Blood HCO3 10 *L 23-27 MMOL/L Arterial Blood Total CO2 12.2 L 21.0-31.0 MMOL/L Arterial Blood Oxygen Saturation 100 94-100 % Arterial Blood Base Excess -24.4 L -2.5-2.5 MMOL/L Blood Gas Ventilator Setting YES Blood Gas Inspired Oxygen 100% My Orders Orders - JAYNEBASIL POTTS DO Ed Iv/Invasive Line Start (02/07/23 20:50) Cbc No Diff (02/07/23 20:50) Comprehensive Metabolic Panel (02/07/23 20:50) Troponin I [place] (02/07/23 20:50) Magnesium (02/07/23 20:50) Chest 1 View, Ap/Pa Only (02/07/23 20:50) Ct Head Wo (02/07/23 20:50) Accucheck Stat ONCE (02/07/23 20:51) Ekg Tracing (02/07/23 20:52) Arterial Blood Gas (02/07/23 20:54) Norepinephrine 8 Mg/250 Ml (Norepinephri (02/07/23 21:03) Norepinephrine 8 Mg/250 Ml (Norepinephri (02/07/23 21:15) Chest 1 View, Ap/Pa Only (02/07/23 21:18) Arterial Blood Draw - Obtain (02/07/23 ) Calcium Gluconate 1gm Ivpb (Calcium Gluc (02/07/23 22:15) Insulin (Regular) Per Unit (Insulin (Reg (02/07/23 22:15) D50w (Emergency) Syringe (Dextrose 50% 5 (02/07/23 22:15) Ed Admission (Communication) (02/07/23 22:22) Arterial Blood Gas (02/07/23 22:26) Accucheck Stat ONCE (02/07/23 22:27) Ns Iv 1000 Ml (Ns Iv 1000 Ml) (02/07/23 22:32) Lactated Ringers 1,000 Ml (Lactated Ring (02/07/23 22:32) Medications Given in ED Current Medications Medications Dose Ordered Sig/Tessy Route Start Time Stop Time Status Last Admin Dose Admin Calcium Gluconate/ Sodium Chloride 100 ml @ 120 mls/hr ONCE ONCE IV 02/07/23 22:15 02/07/23 23:04 DC 02/07/23 22:28 120 MLS/HR Dextrose 50 ml ONCE ONCE IV 02/07/23 22:15 02/07/23 22:17 DC 02/07/23 22:28 50 ML Insulin Human Regular 10 unit ONCE ONCE IV 02/07/23 22:15 02/07/23 22:17 DC 02/07/23 22:29 10 UNIT Lactated Ringer's 1,000 ml @ STK-MED ONCE IV 02/07/23 22:32 02/07/23 22:36 DC 02/07/23 20:48 999 MLS/HR Sodium Chloride 1,000 ml @ STK-MED ONCE .ROUTE 02/07/23 22:32 02/07/23 22:36 DC 02/07/23 21:29 999 MLS/HR Vital Signs/I&O 02/07/23 02/07/23 02/07/23 20:41 21:13 21:14 Pulse 152 116 Resp 16 B/P (MAP) 110/44 (66) 60/20 Pulse Ox 100 100 O2 Delivery Ambu Bag FiO2 100 02/07/23 23:59 Intake Total 1200 ml Balance 1200 ml Comment Atrial fibrillation with a rate of 130 bpm. Normal intervals outside of AK interval. Normal axis. No ST or T wave abnormalities. No ectopy. No STEMI. Critical Care Note Critical Care Total Time (minutes) 90 Departure Communication (Admissions) Patient has strong carotid and femoral pulses on arrival despite asystole in the field and recent defibrillation. He has no spontaneous respirations. He has not open tracheal stoma site cannulating this with an ET tube and there was good color change on the CO2 detector and good chest rise bilaterally. His oxygenation improved thereafter. Initially quite hypotensive, 40s over palp. After airway was secured he started surgical line and started Levophed. Initially this had minimal effect however after about 20 minutes his blood pressures improved to 90 and then eventually to 105 systolic. His initial tachycardia and A-fib developed into a sinus rhythm with an overall rate in the 70s. Anticipate this is because his pH improved with adequate ventilation. He does have severe hyperkalemia and so he is given calcium insulin glucose. He had a bicarb during his initial resuscitation. Remained stable for the remainder of his emergency department stay. I did order CT scan of his head and this was obtained and route to the ICU and results will be deferred to the ICU, Dr. Stephy did review his chest x-ray. The initial chest x-ray showed ET tube to be deep and was pulled back and repeat chest x-ray shows improved placement. Impression Primary Impression: Cardiac arrest Additional Impression: Respiratory arrest Disposition: ADMITTED INPATIENT Condition: Critical Departure-Patient Inst. Referrals: [facility] (PCP) Primary Care Physician SIRENA AKERS (Family) Primary Care Physician BASIL GODOY DO Feb 07, 2023 20:58
[2023-02-07] MEDS ORDERED: NOREPINEPHRINE 8 MG/250 ML 250 ML IV ONE (21:03)
[2023-02-07 21:04] LABS: ABG OXYGEN SATURATION 100 % (94-100); ABG PCO2 68 MMHG (35-45); ABG PO2 178 MMHG (79-93)
[2023-02-07 21:12] LABS: HEMATOCRIT 47 % (40-54); MEAN CORPUSCULAR HEMOGLOBIN 31 pg (25-34); MEAN CORPUSCULAR HGB CONC 28 g/dL (32-36); MEAN CORPUSCULAR VOLUME 109 fL (80-99); MEAN PLATELET VOLUME 10.8 fL (9.0-12.2); PLATELET COUNT 197 10^3/uL (130-400); WHITE BLOOD COUNT 9.7 10^3/uL (4.3-11.0)
[2023-02-07 21:14] VITALS: BP 49/31
[2023-02-07] MEDS ORDERED: NOREPINEPHRINE 8 MG/250 ML 250 ML IV SCH ×2 (21:15→22:30)
[2023-02-07 21:19] LABS: ABG PH < 6.80 (7.37-7.43)
[2023-02-07 21:20] LABS: INSPIRED O2 100%; VENTILATOR YES
--- NOTE | 2023-02-07 21:25 | Diagnostic Imaging Report ---
INDICATION: Cardiopulmonary arrest. FINDINGS: The endotracheal tube appears to be well within the right mainstem bronchus and should be withdrawn 10 cm. There is cardiomegaly. There is some venous congestion. There is no pleural effusion or pneumothorax. There are bilateral perihilar infiltrates. IMPRESSION: 1. Endotracheal tube appears to be well within the right mainstem bronchus and should be withdrawn approximately 10 cm. 2. Bilateral perihilar infiltrates and some venous congestion. Dictated by: Dictated on workstation # [id number]
--- NOTE | 2023-02-07 21:35 | Diagnostic Imaging Report ---
INDICATION: Tube placement. FINDINGS: The endotracheal tube appears to be either at the level of the niki or just below within the right mainstem bronchus. The heart size is stable. There is persistent bilateral perihilar infiltrates and some venous congestion. There is no pleural effusion or pneumothorax. The mediastinum is unremarkable. IMPRESSION: 1. Endotracheal tube appears to be at the level of the niki or slightly within the proximal right mainstem bronchus. 2. Increasing bilateral perihilar infiltrates and venous congestion. Dictated by: Dictated on workstation # [id number]
[2023-02-07 21:39] LABS: ALANINE AMINOTRANSFERASE 228 U/L (0-55); ALBUMIN 2.9 GM/DL (3.2-4.5); ALKALINE PHOSPHATASE 120 U/L (40-136); BILIRUBIN,TOTAL 0.8 MG/DL (0.1-1.0); BUN/CREATININE RATIO 31; CALCIUM 10.2 MG/DL (8.5-10.1); CARBON DIOXIDE 10 MMOL/L (21-32); CHLORIDE 116 MMOL/L (98-107); CREATININE SERUM 1.66 MG/DL (0.60-1.30); GFR ESTIMATED 43; MAGNESIUM 3.6 MG/DL (1.6-2.4); SODIUM 157 MMOL/L (135-145); TOTAL PROTEIN 6.7 GM/DL (6.4-8.2)
[2023-02-07 22:06] LABS: GLUCOSE 34 MG/DL (70-105)
[2023-02-07] MEDS ORDERED: inSUlin (REGULAR) HUMAN 1 UNIT/0.01 ML (CHARGE PER UNIT) IV ONE (22:15)
[2023-02-07] MEDS ORDERED: CALCIUM GLUCONATE 1GM IVPB 100 ML IV ONE (22:15)
[2023-02-07] MEDS ORDERED: DEXTROSE 50% 50 ML (IMS) SYR IV ONE (22:15)
[2023-02-07] MEDS ORDERED: LACTATED RINGERS 1,000 ML 1,000 ML IV ONE (22:32)
[2023-02-07] MEDS ORDERED: NS IV 1000 ML 1,000 ML ONE (22:32)
[2023-02-07 22:36] LABS: ABG BASE EXCESS -24.4 MMOL/L (-2.5-2.5); ABG OXYGEN SATURATION 100 % (94-100); ABG PCO2 64 MMHG (35-45); ABG PO2 379 MMHG (79-93); ABG TCO2 12.2 MMOL/L (21.0-31.0)
[2023-02-07 22:38] LABS: INSPIRED O2 100%; VENTILATOR YES
[2023-02-07 22:40] LABS: ABG PH 6.81 (7.37-7.43)
[2023-02-07 23:07] VITALS: BP 110/49
[2023-02-08] MEDS ORDERED: MILK OF MAGNESIA 400 MG/5 ML 30 ML UDC PO PRN (00:15)
[2023-02-08] MEDS ORDERED: VANCOMYCIN INJECTION 1,000 MG in NS (IVPB) 250 ML 250 ML IV ONE (00:15)
[2023-02-08] MEDS ORDERED: CALCIUM CARBONATE 500 MG CHEW TABLET PO PRN (00:15)
[2023-02-08] MEDS ORDERED: ANTACID SUSPENSION 30 ML UDC PO PRN (00:15)
[2023-02-08] MEDS ORDERED: ONDANSETRON 4 MG ORAL DISSOLVE TABLET PO PRN (00:15)
[2023-02-08] MEDS ORDERED: LACTULOSE SYRUP 10GM/15ML 30ML UDC PO PRN (00:15)
[2023-02-08] MEDS ORDERED: ACETAMINOPHEN 325 MG TABLET PO PRN (00:15)
[2023-02-08] MEDS ORDERED: NALOXONE 0.4 MG/ML 1 ML VIAL IV PRN (00:15)
[2023-02-08] MEDS ORDERED: SODIUM BICARBONATE 8.4% SYR 150 MEQ in D5W 1,000 ML IV SOLUTION 1,000 ML IV SCH (00:15)
[2023-02-08] MEDS ORDERED: ACETAMINOPHEN 500 MG TABLET PO PRN (00:15)
[2023-02-08] MEDS ORDERED: ONDANSETRON INJECTION 4 MG/2 ML (SDV) IV PRN (00:15)
[2023-02-08] MEDS ORDERED: NS IV 500 ML 500 ML IV PRN (00:15)
[2023-02-08] MEDS ORDERED: BISACODYL 10 MG SUPPOSITORY PR PRN ×2 (00:15→08:15)
[2023-02-08] MEDS ORDERED: PIPERACILLIN/Tazobactam 4.5 GM in NS (IVPB) 100 ML 100 ML IV ONE (00:15)
[2023-02-08] MEDS ORDERED: RT-Ipratropium/Albuterol NEB 3 ML VIAL INH ONE (00:15)
[2023-02-08 00:35] LABS: BASOPHILS # (AUTO) 0.1 10^3/uL (0.0-0.1); BASOPHILS % (AUTO) 1 % (0-10); EOSINOPHILS # (AUTO) 0.2 10^3/uL (0.0-0.3); EOSINOPHILS % (AUTO) 1 % (0-10); HEMATOCRIT 43 % (40-54); HEMOGLOBIN 12.3 g/dL (13.3-17.7); LYMPHOCYTES # (AUTO) 0.6 10^3/uL (1.0-4.0); LYMPHOCYTES % (AUTO) 5 % (12-44); MEAN CORPUSCULAR HEMOGLOBIN 31 pg (25-34); MEAN CORPUSCULAR HGB CONC 29 g/dL (32-36); MEAN CORPUSCULAR VOLUME 106 fL (80-99); MEAN PLATELET VOLUME 10.4 fL (9.0-12.2); MONOCYTES # (AUTO) 0.2 10^3/uL (0.0-1.0); MONOCYTES % (AUTO) 1 % (0-12); NEUTROPHILS % (AUTO) 82 % (42-75); PLATELET COUNT 331 10^3/uL (130-400); WHITE BLOOD COUNT 12.2 10^3/uL (4.3-11.0)
[2023-02-08 00:44] LABS: ALBUMIN 2.6 GM/DL (3.2-4.5); POTASSIUM 6.1 MMOL/L (3.6-5.0)
[2023-02-08 00:45] LABS: CALCIUM 8.1 MG/DL (8.5-10.1)
[2023-02-08 00:47] LABS: TOTAL PROTEIN 6.2 GM/DL (6.4-8.2)
[2023-02-08 00:50] LABS: CREATININE SERUM 1.84 MG/DL (0.60-1.30)
[2023-02-08] MEDS: NOREPINEPHRINE 8 MG/250 ML 250 ML IV SCH ×2 (01:03→04:45)
[2023-02-08 01:19] LABS: BAND NEUTROPHILS 23 %; LYMPHOCYTES % (MANUAL) 5 %; NEUTROPHILS % (MANUAL) 55 %; SMEAR SCAN COMMENT YES
[2023-02-08 01:20] LABS: METAMYELOCYTES % 5 %; MONOCYTES % (MANUAL) 1 %; MYELOCYTES % 8 %
[2023-02-08 01:21] LABS: ATYPICAL LYMPHOCYTES 2 %; BURR CELLS SLIGHT
[2023-02-08 01:44] LABS: ABG BASE EXCESS -18.9 MMOL/L (-2.5-2.5); ABG OXYGEN SATURATION 100 % (94-100); ABG PCO2 56 MMHG (35-45); ABG PO2 182 MMHG (79-93); ABG TCO2 14.6 MMOL/L (21.0-31.0)
[2023-02-08 01:45] LABS: VENTILATOR NO
[2023-02-08 01:49] LABS: ABG PH 6.97 (7.37-7.43)
[2023-02-08 01:56] LABS: CLARITY,URINE TURBID; COLOR,URINE YELLOW; GLUCOSE, URINE (UA) TRACE (NEGATIVE); PROTEIN,URINE 2+ (NEGATIVE)
[2023-02-08 01:57] LABS: KETONES,URINE TRACE (NEGATIVE); NITRITE,URINE NEGATIVE (NEGATIVE)
[2023-02-08 01:58] LABS: AMORPHOUS SEDIMENT,UR MOD AMOR URATES /LPF; BACTERIA,URINE LARGE /HPF; BILIRUBIN,URINE 1+ (NEGATIVE); LEUKOCYTE ESTERASE ,URINE NEGATIVE (NEGATIVE); SQUAMOUS EPITHELIAL CELL,UR RARE /HPF
[2023-02-08 01:59] LABS: HYALINE CASTS, URINE RARE /LPF
[2023-02-08 02:26] VITALS: BP 119/50
[2023-02-08] MEDS: RT-Ipratropium/Albuterol NEB 3 ML VIAL INH SCH ×2 (02:26→06:49)
[2023-02-08 04:19] LABS: ABG BASE EXCESS -16.2 MMOL/L (-2.5-2.5); ABG OXYGEN SATURATION 93 % (94-100); ABG PCO2 49 MMHG (35-45); ABG PO2 82 MMHG (79-93); ABG TCO2 15.4 MMOL/L (21.0-31.0)
[2023-02-08 04:20] LABS: INSPIRED O2 50%
[2023-02-08 04:21] LABS: ABG PH 7.06 (7.37-7.43); BASOPHILS % (AUTO) 0 % (0-10); EOSINOPHILS # (AUTO) 0.2 10^3/uL (0.0-0.3); EOSINOPHILS % (AUTO) 1 % (0-10); HEMATOCRIT 42 % (40-54); HEMOGLOBIN 12.4 g/dL (13.3-17.7); LYMPHOCYTES # (AUTO) 0.3 10^3/uL (1.0-4.0); LYMPHOCYTES % (AUTO) 2 % (12-44); MEAN CORPUSCULAR HEMOGLOBIN 30 pg (25-34); MEAN CORPUSCULAR HGB CONC 29 g/dL (32-36); MEAN CORPUSCULAR VOLUME 104 fL (80-99); MEAN PLATELET VOLUME 10.6 fL (9.0-12.2); MONOCYTES # (AUTO) 0.3 10^3/uL (0.0-1.0); MONOCYTES % (AUTO) 2 % (0-12); NEUTROPHILS # (AUTO) 12.2 10^3/uL (1.8-7.8); NEUTROPHILS % (AUTO) 87 % (42-75); PLATELET COUNT 295 10^3/uL (130-400); VENTILATOR YES
[2023-02-08 04:36] LABS: ALBUMIN 2.6 GM/DL (3.2-4.5); BILIRUBIN,TOTAL 1.4 MG/DL (0.1-1.0); CALCIUM 6.9 MG/DL (8.5-10.1); CREATININE SERUM 2.07 MG/DL (0.60-1.30); PHOSPHORUS 13.5 MG/DL (2.3-4.7)
[2023-02-08] MEDS ORDERED: VASOPRESSIN INJECTION 20 UNIT in NS (IVPB) 100 ML 100 ML IV SCH (05:00)
[2023-02-08 05:06] LABS: POTASSIUM 6.6 MMOL/L (3.6-5.0)
[2023-02-08] MEDS ORDERED: VASOPRESSIN (PYXIS DRIP KIT) 20 UNIT/1 ML VIAL ONE (05:21)
[2023-02-08] MEDS ORDERED: NS (IVPB) 100 ML 100 ML ONE (05:21)
[2023-02-08] MEDS ORDERED: DEXTROSE 50% 50 ML (IMS) SYR IV ONE (05:45)
[2023-02-08] MEDS ORDERED: CALCIUM GLUCONATE 1GM IVPB 100 ML IV ONE (05:45)
[2023-02-08] MEDS ORDERED: RT-ALBUTEROL SULF 2.5 MG/3 ML PRE-MIX VIAL INH ONE (05:45)
[2023-02-08] MEDS ORDERED: inSUlin (REGULAR) HUMAN 1 UNIT/0.01 ML (CHARGE PER UNIT) SC ONE (05:45)
[2023-02-08] MEDS ORDERED: POTASSIUM CL 10MEQ/50ML IVPB 50 ML IV SCH (06:00)
[2023-02-08] MEDS ORDERED: POTASSIUM CHLORIDE 20 MEQ TABLET PO SCH (06:00)
[2023-02-08] MEDS ORDERED: MAGNESIUM 1 GM/100 ML IVPB 100 ML IV SCH (06:00)
--- NOTE | 2023-02-08 06:38 | History & Physical-Hospitalist ---
SANIYA HORN MD,RESIDENT 02/08/23 0638: History of Present Illness HPI/Chief Complaint Pt is a 72 yo male with a 3-year h/o of dementia and throat cancer, who presented to ED in cardiac arrest. Per, the daughter, while she was bathing him, he all of a sudden slumped down and became unresponsive, she is unsure if he hit his head or not at that time. She did say that he has had multiple falls where she thinks he hit his head over the last few months. [facility] prior to calling EMS as their first impression was that he had passed, per RN. Report from ED provider indicated that he received 1x defibrillation in the field with EMS at 200J where his rhythm went from asystole to ventricular fibrillation, and when he reached the ED he received another defibrillation to 200J, his rhythm went from atrial fibrillation to sinus rhythm with PACs. He received 3x epinephrine, was intubated without sedation, and started on levophed for blood pressure support. Per ED provider, on exam there was no spontaneous breathing, and patient never became conscious, he described his outlook as very bleak. Upon admission to ICU, RN report indicated that he had fixed pupils, right pinpoint, left 2mm and head CT, indicated a possible subdural hematoma. The eICU provider recommended transfer to another facility for possible neurology care and dialysis. Per the family, indicated to RN over the telephone, the family was unsure of what they wanted regarding resuscitation efforts and care, but after discussion decided that they wanted to give him 24hrs to "bounce back" and to keep him full code. The patient's stability for transfer was a concern, which was conveyed to the family, and they still indicated for us to do everything we could for him. Unfortunately, no beds are available for transfer to higher level of care at this time. On review of ABG, labs, and vitals, in my opinion this status is unrecoverable and not compatible with life and patient has a very poor prognosis when moved from ED to ICU. Source: patient Date Seen 02/08/23 Time Seen by a Provider: 07:00 Attending Physician [facility] PCP Admitting Physician: Sonya May DO Attending Physician: Sonya May DO Referring Physician Date of Admission Feb 07, 2023 at 22:36 Home Medications & Allergies Home Medications Reviewed patient Home Medication Reconciliation performed by pharmacy medication reconciliations material handling technician and/or nursing. Patients Allergies have been reviewed. Allergies Allergies Uncoded Allergies chicken feathers ( Allergy, Mild, 12/09/08) Past Rcmbmgn-Ffwsoc-Qgoscj Hx Patient Social History Use of E-Cig and/or Vaping dev: Unable to obtain Substance use?: Unable to obtain Alcohol Use?: Unable to obtain Pt feels they are or have been: Unable to obtain Immunizations Up To Date Tetanus Booster (TDap): Unknown Seasonal Allergies Seasonal Allergies: No Current Status Advance Directives: Yes Advance Directive Location: Family to bring in copy Communicates: Unable To Communicate Primary Language: Prydeinig Preferred Spoken Language: Prydeinig Is interpretation needed?: No Past Medical History Surgeries: Abdominal, Orthopedic Asthma, Emphysema Currently Using CPAP: No Currently Using BIPAP: No Gastroesophageal Reflux, Hiatal Hernia Back Injury, Chronic Back Pain Diabetes, Non-Insulin dep Nursing Suicide Risk Notes: CPR IN PROGRESS-UNABLE TO OBTAIN Recent Skin Changes Blood Disorders: No Adverse Reaction/Blood Tranf: No Family Medical History FH: leukemia 19 MOTHER Review of Systems ROS-Unable to Obtain: Patient unconscious Constitutional: see HPI Physical Exam Physical Exam Vital Signs Vital Signs - First Documented 02/07/23 02/07/23 02/07/23 02/07/23 20:41 21:14 23:15 23:30 Temp 32.3 Pulse 152 Resp 16 B/P (MAP) 110/44 (66) Pulse Ox 100 O2 Delivery Ambu Bag O2 Flow Rate 100.00 FiO2 100 Capillary Refill : Greater Than 3 Seconds Height, Weight, BMI Height: 5'8.00" Weight: 142lbs. 0.0oz. 64.737392hb; 13.70 BMI Method:Stated General Appearance: Cachetic Eyes: Right Eye Abnormal Pupil (pinpoint); Bilateral Eye Other (pupils fixed) Neck: Other (Tracheostomy in place) Respiratory: Other (coarse breath sounds) Cardiovascular: Regular Rate, Rhythm Gastrointestinal: Distended, Other (bowel sounds not heard) Extremity: Slow Capillary Refill Neurologic/Psychiatric: Abnormal therapist II-XII, Other (brainstem reflexes absent (gag, posturing); does not withdraw to pain) Reflexes: 0 Bicep (R), 0 Bicep (L) Skin: Ecchymosis, Pallor Results Results/Procedures Labs Laboratory Tests 02/07/23 20:54 02/08/23 00:20 02/08/23 04:05 Patient resulted labs reviewed. Assessment/Plan Admission Diagnosis Cardiac arrest Admission Status: Inpatient Order (span 2 midnights) Reason for Inpatient Admission: Cardiac arrest Diagnosis/Problems Diagnosis/Problems (1) Cardiopulmonary arrest Assessment & Plan: Pt found unresponsive at home by family ACLS provided by EMS and ED provider, ROSC achieved in ED Pt remained unconscious without spontaneous breathing efforts On exam, there were no brainstem responses, no bowel sounds, right pupil pinpoint, both pupils fixed Minimal urine output throughout the night LA 13.21 on admission PLAN: Vasopressor support Mechanical ventilation bicarb given for initial bicarb of 10 calcium gluconate for hyperkalemia IVF Serial neuro exams Daily CMP, CBC UDS negative UCx pending Possible transfer to higher level of care with neurology and dialysis pending bed availability and DPOA's decision SONYA MAY DO 02/08/23 1533: History of Present Illness HPI/Chief Complaint Chief complaint: Unresponsive status post cardiac and respiratory arrest requiring intubation HPI: This is a 72-year-old male clinic patient of [facility] with a history of dementia and throat cancer who presented to the ER in cardiac and respiratory arrest. Patient was intubated without sedation and ABG revealed significant acidosis and severe hypotension along with arrhythmia status post defibrillation out in the field. The family had already called the home when paramedics arrived due to family assessing him to be . The ER provider contacted the service for what was thought to be a short time before the family gathered before he was terminally extubated but upon further evaluation the family was unsure if they wanted him transferred to higher level of care although he was requiring 2 pressors and appeared to be terminally ill. In good dnenis other hospitals were contacted for transfer in the meantime. Upon bedside evaluation he was found to be at the end stage of his life and upon updating family the decision was made for comfort care and terminally extubate. Source: patient Exam Limitations: clinical condition (intubatedii) Past Dpksrth-Tnxxsx-Edaqib Hx Patient Social History Marrital Status: Employed/Student: retired Smoking Status: Unknown if Ever Smoked Past Medical History Dementia Esophageal Family Medical History FH: leukemia 19 MOTHER Review of Systems Constitutional: see HPI Physical Exam Physical Exam General Appearance: Chronically ill, Other (Comatose without sedation) Assessment/Plan Admission Diagnosis Assessment: Status post cardiac and respiratory arrest at home Severe acidosis and consistent with Acute kidney injury Hyperkalemia Possible chronic subdural hematoma of the brain Dementia Esophageal cancer Plan: Comfort care protocol indicated End-of-life care Admission Status: Inpatient Order (span 2 midnights) Reason for Inpatient Admission: cardiac and respiratory arrest with terminally ill acidosis SANIYA HORN MD,RESIDENT Feb 08, 2023 06:38 SOYNA MAY DO Feb 08, 2023 15:33
[2023-02-08 06:49] VITALS: BP 126/90
--- NOTE | 2023-02-08 07:06 | Diagnostic Imaging Report ---
EXAMINATION: CT head without contrast. TECHNIQUE: Multiple contiguous axial images were obtained through the brain without the use of intravenous contrast. All CT scans use one or more of the following dose optimizing techniques: automated exposure control, MA and/or KvP adjustment based on patient size and exam type or iterative reconstruction. HISTORY: Cardiac arrest COMPARISON: 10/05/2019 FINDINGS: The pickens-white matter differentiation is normal. No mass effect or midline shift. There is age related cerebral atrophy with ex vacuo dilation of the ventricles. Basilar cisterns are patent. There is a thin right-sided subdural fluid collection, slightly hyperdense to CSF and isodense to brain parenchyma. The orbits are normal. There is right maxillary sinus mucosal thickening. Mastoid air cells are clear. No soft tissue abnormality is seen. No osseus lesions or fractures are seen. IMPRESSION: 1. Thin right-sided subdural fluid collection which is isodense to brain parenchyma which may represent an acute or chronic subdural hematoma. Short-term followup in 6 to 8 hours recommended. There is no significant disagreement with the preliminary report. Dictated by: Dictated on workstation # [id number]
[2023-02-08 07:22] LABS: COCAINE SCREEN URINE NEGATIVE (NEGATIVE)
[2023-02-08 07:23] LABS: AMPHETAMINE SCREEN, URINE NEGATIVE (NEGATIVE); BARBITURATE SCREEN URINE NEGATIVE (NEGATIVE); CANNABINOID SCREEN, URINE NEGATIVE (NEGATIVE); METHADONE STAT NEGATIVE (NEGATIVE); OPIATE SCREEN URINE NEGATIVE (NEGATIVE); OXYCODONE STAT NEGATIVE (NEGATIVE); TRICYCLIC ANTIDEPRESSANTS SCRE NEGATIVE (NEGATIVE)
[2023-02-08] MEDS ORDERED: LIDOCAINE UROJET 2% GEL 10 ML PKG TOP ONE (08:15)
[2023-02-08] MEDS ORDERED: morphine INJ 4 MG/ML 1 ML (VIAL/SYRINGE) IV PRN (08:15)
[2023-02-08] MEDS ORDERED: ONDANSETRON INJECTION 4 MG/2 ML (SDV) IVP PRN (08:15)
[2023-02-08] MEDS ORDERED: PROMETHAZINE INJ 25 MG/ML VIAL IVP PRN (08:15)
[2023-02-08] MEDS ORDERED: ARTIFICIAL TEARS Ophth solution 0.4 ML UNIT DOSE OU PRN (08:15)
[2023-02-08] MEDS ORDERED: GLYCOPYRROLATE INJ 0.2 MG/ML 2 ML VIAL IV PRN (08:15)
[2023-02-08] MEDS ORDERED: RT-Ipratropium/Albuterol NEB 3 ML VIAL INH PRN (08:15)
[2023-02-08] MEDS ORDERED: LORazepam 1 MG TABLET SL PRN (08:15)
[2023-02-08] MEDS ORDERED: ACETAMINOPHEN 650 MG SUPPOSITORY PR PRN (08:15)
--- NOTE | 2023-02-08 08:16 | Diagnostic Imaging Report ---
Indication: Endotracheal tube placement. Time of Exam: 12:28 AM Correlation is made with prior chest one day earlier. ET tube continues to be somewhat low in position near the niki and proximal right mainstem bronchus. Patchy bilateral airspace infiltrates are noted, greatest on the left. There is no effusion or pneumothorax. Impression: ET tube remains slightly in low position, as described. Patchy bilateral infiltrates persist. Dictated by: Dictated on workstation # [id number]
--- NOTE | 2023-02-08 08:16 | Diagnostic Imaging Report ---
Indication: ET tube repositioned. Findings: ET tube partially retracted, tip projects above the niki in the lower 3rd of the thoracic esophagus in good alignment. Bilateral infiltrates greater left showed no significant change. Impression: ET tube repositioned in excellent alignment, unchanged bilateral infiltrates. No adverse development. Dictated by: Dictated on workstation # [id number]
[2023-02-08] MEDS ORDERED: SALIVA SUBSTITUTE 236 ML SPRAY MM PRN (08:30)
--- NOTE | 2023-02-08 08:38 | Progress Note ---
SANIYA HORN MD,RESIDENT 02/08/23 0838: Progress Note Assessment/Plan Time Seen by Provider: 08:38 Events since last exam The Pt's daughter and DPOA, arrived at the [facility] to see her father and receive an update this morning. We discussed the events and measures taken to save his life, but that despite these, his prognosis is very poor. She called her mother, whom I also spoke with and explained her 's prognosis to as well. Together they discussed the Pt's wishes of not being "a vegetable" and ultimately made the decision to revert to comfort care measures, disconnect the ventilator and discontinue the cardiac support. The patients daughter explained that they "knew this was coming", and that she thought "his throat cancer was back". Assessment/Plan Comfort care measures with DNR status Vitals Last set of Vitals Signs Vital Signs Date Time Temp Pulse Resp B/P (MAP) Pulse Ox O2 Delivery O2 Flow Rate FiO2 02/08/23 08:00 80 86/66 (71) 98 Mechanical Ventilator 35.00 02/08/23 08:00 36.8 02/08/23 07:00 30 02/08/23 06:49 35 I&O I&O Intake and Output 02/08/23 00:00 Intake Total 2300 ml Balance 2300 ml IV Total 2300 ml Labs Laboratory Tests 02/07/23 20:46: Glucometer 109 02/07/23 20:53: Arterial Blood pH < 6.80*L, Arterial Blood Partial Pressure CO2 68H, Arterial Blood Partial Pressure O2 178H, Arterial Blood HCO3 , Arterial Blood Total CO2 , Arterial Blood Oxygen Saturation 100, Arterial Blood Base Excess , Blood Gas Ventilator Setting YES, Blood Gas Inspired Oxygen 100% 02/07/23 20:54: White Blood Count 9.7, Red Blood Count 4.26L, Hemoglobin 13.0L, Hematocrit 47, Mean Corpuscular Volume 109H, Mean Corpuscular Hemoglobin 31, Mean Corpuscular Hemoglobin Concent 28L, Red Cell Distribution Width 14.1, Platelet Count 197, Mean Platelet Volume 10.8, Sodium Level 157H, Potassium Level 7.0#*H, Chloride Level 116H, Carbon Dioxide Level 10L, Anion Gap 31H, Blood Urea Nitrogen 52H, Creatinine 1.66H, Estimat Glomerular Filtration Rate 43, BUN/Creatinine Ratio 31, Glucose Level 34*L, Calcium Level 10.2H, Corrected Calcium 11.1H, Magnesium Level 3.6H, Total Bilirubin 0.8, Aspartate Amino Transf (AST/SGOT) 342H, Alanine Aminotransferase (ALT/SGPT) 228H, Alkaline Phosphatase 120, Troponin I < 0.028, Total Protein 6.7, Albumin 2.9L 02/07/23 21:00: Urine Color YELLOW, Urine Clarity TURBID, Urine pH 5.0, Urine Specific [place] >=1.030, Urine Protein 2+H, Urine Glucose (UA) TRACEH, Urine Ketones TRACEH, Urine Nitrite NEGATIVE, Urine Bilirubin 1+H, Urine Urobilinogen 0.2, Urine Leukocyte Esterase NEGATIVE, Urine RBC (Auto) 1+H, Urine RBC 2-5H, Urine WBC NONE, Urine Squamous Epithelial Cells RARE, Urine Crystals NONE, Urine Amorphous Sediment MOD SAMANTHA URATESH, Urine Bacteria LARGEH, Urine Casts PRESENT, Urine Hyaline Casts RARE, Urine Mucus NEGATIVE, Urine Culture Indicated CULTURE PENDING 02/07/23 22:19: Glucometer 72 02/07/23 22:24: Arterial Blood pH 6.81*L, Arterial Blood Partial Pressure CO2 64H, Arterial Blood Partial Pressure O2 379H, Arterial Blood HCO3 10*L, Arterial Blood Total CO2 12.2L, Arterial Blood Oxygen Saturation 100, Arterial Blood Base Excess - 24.4L, Blood Gas Ventilator Setting YES, Blood Gas Inspired Oxygen 100% 02/08/23 00:20: White Blood Count 12.2H, Red Blood Count 4.03L, Hemoglobin 12.3L, Hematocrit 43, Mean Corpuscular Volume 106H, Mean Corpuscular Hemoglobin 31, Mean Corpuscular Hemoglobin Concent 29L, Red Cell Distribution Width 13.9, Platelet Count 331, Mean Platelet Volume 10.4, Immature Granulocyte % (Auto) 10, Neutrophils (%) (Auto) 82H, Lymphocytes (%) (Auto) 5L, Monocytes (%) (Auto) 1, Eosinophils (%) (Auto) 1, Basophils (%) (Auto) 1, Neutrophils # (Auto) 10.0H, Lymphocytes # (Auto) 0.6L, Monocytes # (Auto) 0.2, Eosinophils # (Auto) 0.2, Basophils # (Auto ) 0.1, Immature Granulocyte # (Auto) 1.2H, Neutrophils % (Manual) 55, Lymphocytes % (Manual) 5, Monocytes % (Manual) 1, Promonocyte % 1, Metamyelocytes % 5, Myelocytes % 8, Band Neutrophils 23, Atypical Lymphocytes 2, Britney Cells SLIGHT, Venous Blood pH 6.90L, Venous Blood Partial Pressure CO2 61H, Venous Blood HCO3 12L, Sodium Level 151H, Potassium Level 6.1H, Chloride Level 115H, Carbon Dioxide Level 9*L, Anion Gap 27H, Blood Urea Nitrogen 53H, Creatinine 1.84H, Estimat Glomerular Filtration Rate 38, BUN/Creatinine Ratio 29, Glucose Level 125H, Lactic Acid Level 13.21*H, Calcium Level 8.1L, Corrected Calcium 9.2, Total Bilirubin 1.0, Aspartate Amino Transf (AST/SGOT) 1219#H, Alanine Aminotransferase (ALT/SGPT) 698#H, Alkaline Phosphatase 149H, Troponin I 0.063H, Total Protein 6.2L, Albumin 2.6L, Thyroid Stimulating Hormone (TSH) 34.87H, Smear Scan YES 02/08/23 00:30: Arterial Blood pH 6.97*L, Arterial Blood Partial Pressure CO2 56H, Arterial Blood Partial Pressure O2 182H, Arterial Blood HCO3 13*L, Arterial Blood Total CO2 14.6L, Arterial Blood Oxygen Saturation 100, Arterial Blood Base Excess - 18.9L, Blood Gas Ventilator Setting NO, Blood Gas Inspired Oxygen UNK 02/08/23 04:05: White Blood Count 14.0H, Red Blood Count 4.08L, Hemoglobin 12.4L, Hematocrit 42, Mean Corpuscular Volume 104H, Mean Corpuscular Hemoglobin 30, Mean Corpuscular Hemoglobin Concent 29L, Red Cell Distribution Width 14.1, Platelet Count 295, Mean Platelet Volume 10.6, Immature Granulocyte % (Auto) 7, Neutrophils (%) (Auto) 87H, Lymphocytes (%) (Auto) 2L, Monocytes (%) (Auto) 2, Eosinophils (%) (Auto) 1, Basophils (%) (Auto) 0, Neutrophils # (Auto) 12.2H, Lymphocytes # (Auto) 0.3L, Monocytes # (Auto) 0.3, Eosinophils # (Auto) 0.2, Basophils # (Auto) 0.0, Immature Granulocyte # (Auto) 1.0H, Arterial Blood pH 7.06*L, Arterial Blood Partial Pressure CO2 49H, Arterial Blood Partial Pressure O2 82, Arterial Blood HCO3 14*L, Arterial Blood Total CO2 15.4L, Arterial Blood Oxygen Saturation 93L, Arterial Blood Base Excess -16.2L, Blood Gas Ventilator Setting YES, Blood Gas Inspired Oxygen 50%, Sodium Level 147H, Potassium Level 6.6*H, Chloride Level 113H, Carbon Dioxide Level 14L, Anion Gap 20H, Blood Urea Nitrogen 53H, Creatinine 2.07H, Estimat Glomerular Filtration Rate 33, BUN/Creatinine Ratio 26, Glucose Level 144H, Lactic Acid Level 8.85*H, Calcium Level 6.9L, Corrected Calcium 8.0L, Phosphorus Level 13.5H, Magnesium Level 3.0H , Total Bilirubin 1.4H, Aspartate Amino Transf (AST/SGOT) 2149#H, Alanine Aminotransferase (ALT/SGPT) 1004#H, Alkaline Phosphatase 121, Total Protein 6.0L , Albumin 2.6L 02/08/23 06:44: Lactic Acid Level 10.53*H 02/08/23 06:55: Urine Opiates Screen NEGATIVE, Urine Oxycodone Screen NEGATIVE, Urine Methadone Screen NEGATIVE, Urine Barbiturates Screen NEGATIVE, Ur Tricyclic A ntidepressants Screen NEGATIVE, Urine Phencyclidine Screen NEGATIVE, Urine Amphetamines Screen NEGATIVE, Urine Methamphetamines Screen NEGATIVE, Urine Benzodiazepines Screen NEGATIVE, Urine Cocaine Screen NEGATIVE, Urine Cannabinoids Screen NEGATIVE Focused Exam Lactate Level 02/08/23 00:20: Lactic Acid Level 13.21*H 02/08/23 04:05: Lactic Acid Level 8.85*H 02/08/23 06:44: Lactic Acid Level 10.53*H Lactic Acid Level Laboratory Tests Test 02/08/23 06:44 Lactic Acid Level 10.53 MMOL/L (0.50-2.00) *H Diagnosis/Problems Diagnosis/Problems (1) Cardiopulmonary arrest Assessment & Plan: Pt found unresponsive at home by family ACLS provided by EMS and ED provider, ROSC achieved in ED Pt remained unconscious without spontaneous breathing efforts On exam, there were no brainstem responses, no bowel sounds, right pupil pinpoint, both pupils fixed Minimal urine output throughout the night LA 13.21 on admission PLAN: Comfort care measures per DPOA. LUIS CARLOS HANLEY DO 02/08/23 1529: Progress Note Assessment/Plan Date Seen by Provider: Feb 08, 2023 Time Seen by Provider: 09:00 SANIYA HORN MD,RESIDENT Feb 08, 2023 08:38 LUIS CARLOS HANLEY DO Feb 08, 2023 15:59
[2023-02-08] MEDS ORDERED: DOCUSATE SODIUM 100 MG CAPSULE PO SCH (09:00)
[2023-02-08] MEDS ORDERED: SENNOSIDES 8.6 MG TABLET PO SCH (09:00)
--- NOTE | 2023-02-08 09:14 | Tele-ICU Progress Note ---
Subjective Date Seen by a Provider: Feb 08, 2023 Time Seen by a Provider: 09:14 Subjective/Events-last exam Tele-ICU Physician , Progress Note Service provided via interactive audio and video telecommunications E-CARE sys tem to a patient admitted to ICU bed in [facility]. Patient is seen today due to persistent need of ICU care Available chart/ vitals / labs / Images reviewed Video assessment done using teleICU camera, rest of exam as per RN Discussed with RN (Maurice) 72 y/o M with PMHx significant for severe demnetia and tracheal stoma presented to ED following out of hospital vfib arrest. Per EMS report, patient had AED and received shock prior to arrival however found to be in asystole then vfib s/p defibrillation with ROSC. He was placed on vent. Labs notable for severe acidosis (pH 6.80. Lactate was 13 on arrival now 10.5. K elevated to 6.6. He was started on Vanc Zosyn This AM still with severe metabolic acidosis, elevated transaminitis likely 2/2 shock liver. A/P: Out of hospital Cardiac arrest likely 2/2 Hyperkalema -Family at bedside and decided to transition to comfort focused care. Severe acidosis -On bicarb gtt & antibiotics -Will d/c Hypoglycemia -D5 gtt Acute respiratory failure -Cont vent support SDH CT head: Concerning for SDH, no intervention as patient transitioning to comfort care/DNR Lines : EVELYNE, (Central Line Necessity Reviewed) Carbajal: 02/07 Nutrition: NPO VTE Prophylaxis: sidney 1`30 bid Stress Ulcer Prophylaxis: Plans in collaboration with bedside consultants and IM MDs. Discussed with RN to reach out if any questions or concerns A total of 30 minutes of critical care time was devoted to this patient today, required to treat and/or prevent further deterioration of critical care condition (as above) Sepsis Event Evaluation Height, Weight, BMI Height: 5'8.00" Weight: 142lbs. 0.0oz. [id number]; 14.03 BMI Method:Stated Focused Exam Lactate Level 02/08/23 00:20: Lactic Acid Level 13.21*H 02/08/23 04:05: Lactic Acid Level 8.85*H 02/08/23 06:44: Lactic Acid Level 10.53*H Lactic Acid Level Laboratory Tests Test 02/08/23 06:44 Lactic Acid Level 10.53 MMOL/L (0.50-2.00) *H Exam Exam Patient acknowledged, consented, and participated in this virtual visit which was conducted using real time audio/video Vital Signs Date Time Temp Pulse Resp B/P (MAP) Pulse Ox O2 Delivery O2 Flow Rate FiO2 02/08/23 08:00 80 86/66 (71) 98 Mechanical Ventilator 35.00 02/08/23 08:00 36.8 02/08/23 07:00 83 02/08/23 07:00 37.0 82 30 119/76 (98) 100 Mechanical Ventilator 35.00 02/08/23 06:49 84 20 100 35 02/08/23 06:00 37.4 85 21 111/69 (83) 97 Mechanical Ventilator 35.00 02/08/23 05:29 81 71/55 02/08/23 05:00 37.4 84 19 66/45 (52) 96 Mechanical Ventilator 50.00 02/08/23 04:45 78 102/78 02/08/23 04:00 100 Mechanical Ventilator 50 02/08/23 04:00 37.1 89 16 101/72 (82) 100 Mechanical Ventilator 50.00 02/08/23 03:44 36.5 02/08/23 03:00 36.0 96 19 95/70 (78) 100 Mechanical Ventilator 50.00 02/08/23 02:26 105 17 100 35 02/08/23 02:00 34.8 98 15 113/38 (63) 100 Mechanical Ventilator 50.00 02/08/23 01:03 93 79/40 02/08/23 01:00 33.6 78 20 79/46 (57) 92 Mechanical Ventilator 50.00 02/08/23 00:57 80 02/08/23 00:30 33.0 83 16 124/38 (66) 100 Mechanical Ventilator 50.00 02/08/23 00:21 50 02/08/23 00:00 32.6 76 15 120/21 (54) 100 Mechanical Ventilator 50.00 02/07/23 23:45 32.5 74 15 115/25 (55) 100 Mechanical Ventilator 50.00 02/07/23 23:32 70 02/07/23 23:30 32.3 77 14 103/28 (53) 100 Mechanical Ventilator 50.00 12/9/23 23:15 72 22 115/20 (51) 100 Mechanical Ventilator 100.00 02/07/23 23:07 73 16 100 100 02/07/23 23:00 100 Mechanical Ventilator 50 02/07/23 22:40 75 16 116/50 100 Ambu Bag 02/07/23 21:14 116 16 100 100 02/07/23 21:13 60/20 02/07/23 20:41 152 110/44 (66) 100 Ambu Bag I & O 02/08/23 07:00 Intake Total 3000 ml Output Total 50 ml Balance 2950 ml Height & Weight Height: 5'8.00" Weight: 142lbs. 0.0oz. [id number]; 14.03 BMI Method:Stated General Appearance: Cachetic Neck: Other (Tracheostomy in place) Respiratory: Other (coarse breath sounds) Cardiovascular: Regular Rate, Rhythm Capillary Refill: Greater Than 3 Seconds Extremity: Slow Capillary Refill Neurologic/Psychiatric: Abnormal ironworker helper shop II-XII, Other (brainstem reflexes absent (gag, posturing); does not withdraw to pain) Skin: Ecchymosis, Pallor Results Lab Laboratory Tests 02/07/23 20:54 02/08/23 00:20 02/08/23 04:05 Assessment/Plan Assessment/Plan . Critical Care: Critically Ill Patient MATTHEW BUSTOS MD Feb 08, 2023 09:14
[2023-02-08] MEDS ORDERED: SODIUM BICARB 8.4% 50 MEQ/50 ML (ABBOTT) SYR INJ ONE (12:00)
[2023-02-08] MEDS ORDERED: CATHETER FLUSH 10 ML SYR IVP ONE (12:00)
--- NOTE | 2023-02-08 13:10 | Short Stay Summary ---
SANIYA HORN MD,RESIDENT 02/08/23 1255: Discharge Summary Hospital Course Problems/Dx: (1) Cardiopulmonary arrest Assessment & Plan: Pt loss consciousness at home ACLS provided by EMS and ED provider, ROSC achieved in ED Pt remained unconscious without spontaneous breathing efforts On exam, there were no brainstem responses, no bowel sounds, right pupil pinpoint, both pupils fixed Minimal urine output throughout the night LA 13.[address] head demonstrated subdural hematoma PLAN: Comfort care measures per DPOA. Final Diagnosis: Cardiopulmonary compromise Hospital Course Date of Admission: Feb 07, 2023 at 22:36 Admission Diagnosis : Family Physician/Provider: Kalyan Solano Date of Discharge: 02/08/23 Discharge Diagnosis: Hospital Course: Pt is a 72 yo male with a 3-year h/o of dementia and throat cancer with a tracheal stoma, who presented to ED in cardiac arrest. Per the daughter, while she was bathing him earlier last evening, he all of a sudden slumped down and became unresponsive, she is unsure if he hit his head or not at that time. She did say that he has had multiple falls where she thinks he hit his head over the last few months. [facility] to calling EMS as their first impression was that he had passed, per RN. Report from ED provide r indicated that he received 1x defibrillation in the field with EMS at 200J where his rhythm went from asystole to ventricular fibrillation, and when he reached the ED he received another defibrillation to 200J, his rhythm went from atrial fibrillation to sinus rhythm with PACs. He received 3x epinephrine, was intubated without sedation, and started on levophed for blood pressure support. Per ED provider, on exam there was no spontaneous breathing, and patient never became conscious, he described his outlook as very bleak. Upon admission to ICU, RN report indicated that he had fixed pupils, right pinpoint, left 2mm and head CT, indicated a possible subdural hematoma. The eICU provider recommended transfer to another facility for possible neurology care and dialysis. Per the family, indicated to RN over the telephone, the family was unsure of what they wanted regarding resuscitation efforts and care, but ultimately decided at that time that they wanted to give him 24hrs to "bounce back" and to keep him full c ode. The patient's stability for transfer was a concern, which was conveyed to the family, and they still indicated for us to do everything we could for him. Unfortunately, no beds were available for transfer to higher level of care. On review of ABG, labs, and vitals, in my opinion his status was unrecoverable and not compatible with life. When the patient's daughter arrived in the morning, we discussed his very poor prognosis given review of his results, exam, vitals, imaging. The daughter called the patient's so she could also be informed of his prognosis. The daughter proceeded to say that he told them he did not want to be a "vegetable" and that she thought that "his cancer was back". At the end of this discussion, the daughter (DPRAMONA) chose to move him to comfort care measures, including extubation and removal from mechanical ventilation, and only treating him for comfort. Shortly after all measures were removed, the patient at 0905. Labs and Pending Lab Test: Laboratory Tests 02/07/23 20:46: Glucometer 109 02/07/23 20:53: Arterial Blood pH < 6.80*L, Arterial Blood Partial Pressure CO2 68H, Arterial Blood Partial Pressure O2 178H, Arterial Blood HCO3 , Arterial Blood Total CO2 , Arterial Blood Oxygen Saturation 100, Arterial Blood Base Excess , Blood Gas Ventilator Setting YES, Blood Gas Inspired Oxygen 100% 02/07/23 20:54: White Blood Count 9.7, Red Blood Count 4.26L, Hemoglobin 13.0L, Hematocrit 47, Mean Corpuscular Volume 109H, Mean Corpuscular Hemoglobin 31, Mean Corpuscular Hemoglobin Concent 28L, Red Cell Distribution Width 14.1, Platelet Count 197, Mean Platelet Volume 10.8, Sodium Level 157H, Potassium Level 7.0#*H, Chloride Level 116H, Carbon Dioxide Level 10L, Anion Gap 31H, Blood Urea Nitrogen 52H, Creatinine 1.66H, Estimat Glomerular Filtration Rate 43, BUN/Creatinine Ratio 31, Glucose Level 34*L, Calcium Level 10.2H, Corrected Calcium 11.1H, Magnesium Level 3.6H, Total Bilirubin 0.8, Aspartate Amino Transf (AST/SGOT) 342H, Alanine Aminotransferase (ALT/SGPT) 228H, Alkaline Phosphatase 120, Troponin I < 0.028, Total Protein 6.7, Albumin 2.9L 02/07/23 21:00: Urine Color YELLOW, Urine Clarity TURBID, Urine pH 5.0, Urine Specific [place] >=1.030, Urine Protein 2+H, Urine Glucose (UA) TRACEH, Urine Ketones TRACEH, Urine Nitrite NEGATIVE, Urine Bilirubin 1+H, Urine Urobilinogen 0.2, Urine Leukocyte Esterase NEGATIVE, Urine RBC (Auto) 1+H, Urine RBC 2-5H, Urine WBC NONE, Urine Squamous Epithelial Cells RARE, Urine Crystals NONE, Urine Amorphous Sediment MOD SAMANTHA URATESH, Urine Bacteria LARGEH, Urine Casts PRESENT, Urine Hyaline Casts RARE, Urine Mucus NEGATIVE, Urine Culture Indicated CULTURE PENDING 02/07/23 22:19: Glucometer 72 02/07/23 22:24: Arterial Blood pH 6.81*L, Arterial Blood Partial Pressure CO2 64H, Arterial Blood Partial Pressure O2 379H, Arterial Blood HCO3 10*L, Arterial Blood Total CO2 12.2L, Arterial Blood Oxygen Saturation 100, Arterial Blood Base Excess - 24.4L, Blood Gas Ventilator Setting YES, Blood Gas Inspired Oxygen 100% 02/08/23 00:20: White Blood Count 12.2H, Red Blood Count 4.03L, Hemoglobin 12.3L, Hematocrit 43, Mean Corpuscular Volume 106H, Mean Corpuscular Hemoglobin 31, Mean Corpuscular Hemoglobin Concent 29L, Red Cell Distribution Width 13.9, Platelet Count 331, Mean Platelet Volume 10.4, Immature Granulocyte % (Auto) 10, Neutrophils (%) (Auto) 82H, Lymphocytes (%) (Auto) 5L, Monocytes (%) (Auto) 1, Eosinophils (%) (Auto) 1, Basophils (%) (Auto) 1, Neutrophils # (Auto) 10.0H, Lymphocytes # (Auto) 0.6L, Monocytes # (Auto) 0.2, Eosinophils # (Auto) 0.2, Basophils # (Auto) 0.1, Immature Granulocyte # (Auto) 1.2H, Neutrophils % (Manual) 55, Lymphocytes % (Manual) 5, Monocytes % (Manual) 1, Promonocyte % 1, Metamyelocytes % 5, Myelocytes % 8, Band Neutrophils 23, Atypical Lymphocytes 2, [place] Cells SLIGHT, Venous Blood pH 6.90L, Venous Blood Partial Pressure CO2 61H, Venous Blood HCO3 12L, Sodium Level 151H, Potassium Level 6.1H, Chloride Level 115H, Carbon Dioxide Level 9*L, Anion Gap 27H, Blood Urea Nitrogen 53H, Creatinine 1.84H, Estimat Glomerular Filtration Rate 38, BUN/Creatinine Ratio 29, Glucose Level 125H, Lactic Acid Level 13.21*H, Calcium Level 8.1L, Corrected Calcium 9.2, Total Bilirubin 1.0, Aspartate Amino Transf (AST/SGOT) 1219#H, Alanine Aminotransferase (ALT/SGPT) 698#H, Alkaline Phosphatase 149H, Troponin I 0.063H, Total Protein 6.2L, Albumin 2.6L, Thyroid Stimulating Hormone (TSH) 34.87H, Total Cortisol [Pending], Smear Scan YES 02/08/23 00:30: Arterial Blood pH 6.97*L, Arterial Blood Partial Pressure CO2 56H, Arterial Blood Partial Pressure O2 182H, Arterial Blood HCO3 13*L, Arterial Blood Total CO2 14.6L, Arterial Blood Oxygen Saturation 100, Arterial Blood Base Excess - 18.9L, Blood Gas Ventilator Setting NO, Blood Gas Inspired Oxygen UNK 02/08/23 04:05: White Blood Count 14.0H, Red Blood Count 4.08L, Hemoglobin 12.4L, Hematocrit 42, Mean Corpuscular Volume 104H, Mean Corpuscular Hemoglobin 30, Mean Corpuscular Hemoglobin Concent 29L, Red Cell Distribution Width 14.1, Platelet Count 295, Mean Platelet Volume 10.6, Immature Granulocyte % (Auto) 7, Neutrophils (%) (Auto) 87H, Lymphocytes (%) (Auto) 2L, Monocytes (%) (Auto) 2, Eosinophils (%) (Auto) 1, Basophils (%) (Auto) 0, Neutrophils # (Auto) 12.2H, Lymphocytes # (Auto) 0.3L, Monocytes # (Auto) 0.3, Eosinophils # (Auto) 0.2, Basophils # (Auto) 0.0, Immature Granulocyte # (Auto) 1.0H, Arterial Blood pH 7.06*L, Arterial Blood Partial Pressure CO2 49H, Arterial Blood Partial Pressure O2 82, Arterial Blood HCO3 14*L, Arterial Blood Total CO2 15.4L, Arterial Blood Oxygen Saturation 93L, Arterial Blood Base Excess -16.2L, Blood Gas Ventilator Setting YES, Blood Gas Inspired Oxygen 50%, Sodium Level 147H, Potassium Level 6.6*H, Chloride Level 113H, Carbon Dioxide Level 14L, Anion Gap 20H, Blood Urea Nitrogen 53H, Creatinine 2.07H, Estimat Glomerular Filtration Rate 33, BUN/Creatinine Ratio 26, Glucose Level 144H, Lactic Acid Level 8.85*H, Calcium Level 6.9L, Corrected Calcium 8.0L, Phosphorus Level 13.5H, Magnesium Level 3.0H , Total Bilirubin 1.4H, Aspartate Amino Transf (AST/SGOT) 2149#H, Alanine Aminotransferase (ALT/SGPT) 1004#H, Alkaline Phosphatase 121, Total Protein 6.0L , Albumin 2.6L 02/08/23 06:44: Lactic Acid Level 10.53*H 02/08/23 06:55: Urine Opiates Screen NEGATIVE, Urine Oxycodone Screen NEGATIVE, Urine Methadone Screen NEGATIVE, Urine Barbiturates Screen NEGATIVE, Ur Tricyclic Antidepressants Screen NEGATIVE, Urine Phencyclidine Screen NEGATIVE, Urine Amphetamines Screen NEGATIVE, Urine Methamphetamines Screen NEGATIVE, Urine Benzodiazepines Screen NEGATIVE, Urine Cocaine Screen NEGATIVE, Urine Cannabinoids Screen NEGATIVE Home Meds Active Reported Proair Hfa (Albuterol Sulfate) 1 Puff Puff 2 Puff IH Q4H PRN 1 PUFF = 90 MCG [Zantac] 75 Mg PO DAILY Benadryl (Diphenhydramine HCl) 25 Mg Capsule 25-50 Mg PO Q6H PRN Tylenol (Acetaminophen) 325 Mg Tablet 650 Mg PO Q6H PRN Iprat-Albut 0.5-3(2.5) mg/3 ml (Ipratropium/Albuterol Sulfate) 3 Ml Ampul.neb 3 Ml NEB Q6H PRN Assessment/Pt Instructions Acute respiratory failure in setting of metabolic acidosis not compatible with life. Discharge Physical Examination General Appearance: Other (Unresponsive ) HEENT: Other (Pupils fixed bilaterally) Abdominal: Other (distended) Neuro: Other (Brainstem reflexes absent) Allergies: Uncoded Allergies: chicken feathers (Allergy, Mild, 12/09/08) Discharge Summary Date of Admission Feb 07, 2023 at 22:36 Date of Discharge Feb 08, 2023 at 11:55 Admission Diagnosis Cardiac arrest Comfort Measures/ End of Life Care: Comfort Measures Discharge Diagnosis (1) Cardiopulmonary arrest Assessment & Plan: Pt found unresponsive at home by family ACLS provided by EMS and ED provider, ROSC achieved in ED Pt remained unconscious without spontaneous breathing efforts On exam, there were no brainstem responses, no bowel sounds, right pupil pinpoint, both pupils fixed Minimal urine output throughout the night LA 13.21 on admission PLAN: Comfort care measures per DPOA. LUIS CARLOS HANLEY DO 02/08/23 1601: Discharge Summary Hospital Course Was the Problem List Reviewed?: Yes Hospital Course Patient had a short hospital course after he suffered cardiac and respiratory arrest at home and was found to have incompatible acidosis levels on ABG and findings consistent with brain . The decision was made to terminally extubate and provide comfort care protocol and he was . When home was notified the visual education director did tell the nurse that his family had contacted them last evening before paramedics arrived thinking he was already so we clarified that he was maintained on a ventilator overnight and he was declared . Discharge Physical Examination Allergies: Uncoded Allergies: chicken feathers (Allergy, Mild, 12/09/08) SANIYA HORN MD,RESIDENT Feb 08, 2023 12:55 LUIS CARLOS HANLEY DO Feb 08, 2023 16:01
--- NOTE | 2023-02-10 01:07 | Physician Query Clarification ---
PQ-Further Specificity Admission/Discharge Admission Date: Feb 07, 2023 at 22:36 Discharge Date: Feb 08, 2023 at 11:55 The medical record reflects the following clinical scenario: History/Risk Factors: 72 years old male patient admitted with cardiac arrest. Hand P, 02/07: cardiac arrest, acidosis, acute kidney injury, hyperkalemia. progress notes, 02/07: cardiac arrest, hyperkalemia, acute respiratory failure. Clinical Findings: Potassium, 6.6 H, lactic acid - 13.21, ph - 6.81, pressure co2 - 64, Treatment: On ventilator, comfort care and patient . Question: Can you further specify cardiac arrest per the clinical indicators above? Please document a response in the Progress Notes or Discharge Summary. 1. Cardiac arrest due to acute respiratory failure. 2. Cardiac arrest due to hyperkalemia. 3. Other, with explanation of the clinical findings. 4. Clinically undetermined, no explanation for the clinical findings. PHYSICIAN RESPONSE Can you specify per above: Other, explanation/clinical finding (arrhythmia and asystole at home) In responding to this query, please exercise your independent professional judgment. The purpose of this communication is to more accurately reflect the complexity of your patients condition. The fact that a question is asked does not imply that any particular answer is desired or expected. Thank you for your timely response to this clarification. Requestors name: [ ] Phone # [ ] THIS PHYSICIAN QUERY FORM IS A PERMANENT PART OF THE MEDICAL RECORD MARIAA BETTENCOURT Feb 10, 2023 01:07 LUIS CARLOS HANLEY DO Feb 10, 2023 04:18
== END 2023-02-08 11:55 | disposition expired | DRG 308 ==
LOC: EDUNIT# 20:41 → ER 20:41 → ICU 22:36
PROVIDERS: ADMIT Internal Medicine; ATTEND Internal Medicine
PROC: 5A1935Z Respiratory Ventilation, Less than 24 Consecutive Hours (ICD-10-PCS; principal; 2023-02-08)
PROC: 0BH17EZ Insertion of Endotracheal Airway into Trachea, Via Natural or Artificial Opening (ICD-10-PCS; 2023-02-08)
PROC: 02HV33Z Insertion of Infusion Device into Superior Vena Cava, Percutaneous Approach (ICD-10-PCS; 2023-02-08)
DX: I49.9 Cardiac arrhythmia, unspecified (principal); I62.00 Nontraumatic subdural hemorrhage, unspecified; J96.00 Acute respiratory failure, unspecified whether with hypoxia or hypercapnia; C15.9 Malignant neoplasm of esophagus, unspecified; E87.20 Acidosis, unspecified; N17.9 Acute kidney failure, unspecified; I46.9 Cardiac arrest, cause unspecified; Z66 Do not resuscitate; Z51.5 Encounter for palliative care; E87.5 Hyperkalemia; F03.90 Unspecified dementia, unspecified severity, without behavioral disturbance, psychotic disturbance, mood disturbance, and anxiety; J43.9 Emphysema, unspecified; K21.9 Gastro-esophageal reflux disease without esophagitis; G89.29 Other chronic pain; M54.9 Dorsalgia, unspecified; I95.9 Hypotension, unspecified; E11.649 Type 2 diabetes mellitus with hypoglycemia without coma
CPT/HCPCS: 31500; 36415; 36556; 36600; 36680; 51702; 70450; 71045; 80053; 80306; 81000; 82533; 82805; 82947; 83605; 83735; 84100; 84443; 84484; 85007; 85025; 85027; 87040; 87081; 87088; 93005; 94002; 94003; 94640; 94799; 99291; 99292